=== PATIENT | female | born 1990 | race Caucasian/White ===

== ENCOUNTER → 2023-04-04 10:19 | Outpatient (CLI) | payer OTHER, SELFPAY ==
[2023-04-04 11:02] LABS: Specimen Label NATERA
[2023-04-04 12:16] LABS: Add Manual Diff / Slide Review NO; Basophils Absolute Auto 0 /uL (0-100); Basophils Percent Auto 0.4 % (0-2); Eosinophils Absolute Auto 0 /uL (0-450); Eosinophils Percent Auto 0.5 % (2-4); Hematocrit 38.6 % (36-46); Hemoglobin 13.2 g/dL (12.0-16.0); Lymphocytes Absolute Auto 1900 /uL (1100-4500); Lymphocytes Percent Auto 19.3 % (25-40); Mean Corpuscular HGB Conc 34.3 % (30-36); Mean Corpuscular Hemoglobin 27.1 PG (26-34); Mean Corpuscular Volume 79.1 fL (80-100); Monocytes Absolute Auto 500 /uL (0-900); Monocytes Percent Auto 4.9 % (3-14); Neutrophils Absolute Auto 7300 /uL (1500-7000); Neutrophils Percent Auto 74.9 % (50-75); Platelet Count 297 X10^3/uL (150-400); Red Blood Cell Count 4.88 X10^6/uL (4.0-5.2); Red Cell Distribution Width 13.5 % (11.6-14.8); White Blood Cell Count 9.7 X10^3/uL (4.5-11.0)
[2023-04-04 12:22] LABS: Alanine Aminotransferase 21 IU/L (<35); Aspartate Aminotransferase 31 IU/L (14-36); BUN Creatinine Ratio 22.4 (6-22); Blood Urea Nitrogen 11 mg/dL (7-17); Estimated Glomerular Filt Rate > 60 mL/min (>60); Uric Acid 4.3 mg/dL (2.5-6.2)
[2023-04-04 12:57] LABS: Hepatitis B Surface Antigen NEGATIVE s/c (NEGATIVE)
[2023-04-04 13:22] LABS: HIV 1 & 2 Ab/Ag 4th Gen Combo NEGATIVE (NEGATIVE); Hep C Virus Ab w/Reflex Quant NEGATIVE s/c (NEGATIVE)
[2023-04-05 06:27] LABS: RPR Screen Non Reactive (Non Reactive)
[2023-04-05 12:25] LABS: Varicella IgG Antibody 1381 index (Immune >165)
== END ==
PROVIDERS: PCP Physician Assistant Medical; Referring Provider Obstetrics & Gynecology; Visit Provider Obstetrics & Gynecology
DX: Z34.80 Encounter for supervision of other normal pregnancy, unspecified trimester (principal); O09.521 Supervision of elderly multigravida, first trimester; O09.299 Supervision of pregnancy with other poor reproductive or obstetric history, unspecified trimester
CPT/HCPCS: 36415; 80055; 82565; 84450; 84460; 84520; 84550; 86787; 86803; 86850; 86900; 86901; 87086; 87389

== ENCOUNTER → 2023-05-23 11:25 | Outpatient (CLI) | payer OTHER, SELFPAY | PROVIDERS: PCP Physician Assistant Medical; Visit Provider Obstetrics & Gynecology | DX: R82.998 Other abnormal findings in urine (principal) | CPT/HCPCS: 87086 ==

== ENCOUNTER → 2023-05-23 12:00 | Outpatient (CLI) | payer OTHER, SELFPAY ==
[2023-05-25 20:36] LABS: AFP Value 28.5 ng/mL (.); Gest Age on Col Date 18.6 weeks (.); Insulin Dep Diabetes No (.); OSBR Risk 1IN 10000 (.); Results Report (.); Test Results *Screen Negative* (.)
== END ==
PROVIDERS: PCP Physician Assistant Medical; Referring Provider Obstetrics & Gynecology; Visit Provider Obstetrics & Gynecology
DX: Z34.82 Encounter for supervision of other normal pregnancy, second trimester (principal); Z3A.17 17 weeks gestation of pregnancy
CPT/HCPCS: 36415; 82105; 87086

== ENCOUNTER → 2023-07-19 11:00 | Outpatient (CLI) | payer OTHER, SELFPAY ==
[2023-07-19 13:39] LABS: Hematocrit 35.3 % (36-46)
[2023-07-19 13:58] LABS: GTT (PREG) 1 Hour PP 50gm Dose 128 mg/dL (76-139)
== END ==
PROVIDERS: PCP Physician Assistant Medical; Referring Provider Obstetrics & Gynecology; Visit Provider Obstetrics & Gynecology
DX: Z34.82 Encounter for supervision of other normal pregnancy, second trimester (principal); Z3A.25 25 weeks gestation of pregnancy
CPT/HCPCS: 36415; 82950; 85014; 85018

== ENCOUNTER → 2023-08-16 13:38 | Outpatient (CLI) | payer OTHER, SELFPAY ==
[2023-08-17 14:20] LABS: Candida species Negative (Negative); Gardnerella vaginalis Negative (Negative); Trichomoas vaginalis Negative (Negative)
== END ==
PROVIDERS: PCP Physician Assistant Medical; Visit Provider Specialist
DX: N89.8 Other specified noninflammatory disorders of vagina (principal)
CPT/HCPCS: 87480; 87510; 87660

== ENCOUNTER 2023-08-31 11:02 | Outpatient (CLI) | payer OTHER, SELFPAY | END 2023-08-31 11:39 | disposition home or self-care (01) | LOC: LABOR 11:23 → OB 09-18 08:41 | PROVIDERS: PCP Physician Assistant Medical; Referring Provider Obstetrics & Gynecology; Visit Provider Obstetrics & Gynecology | DX: O13.3 Gestational [pregnancy-induced] hypertension without significant proteinuria, third trimester (principal); Z3A.32 32 weeks gestation of pregnancy | CPT/HCPCS: 59025; G0378; G0379 ==

== ENCOUNTER 2023-09-15 15:24 | Outpatient (CLI) | payer OTHER, SELFPAY ==
--- NOTE | 2023-09-15 17:06 | PM.OBTRLD ---
Visit Information Visit Information Date of evaluation: 09/15/23 Primary OB Provider: Lizeth Fisher Reason for Evaluation: Yes non-stress test non-stress test reason: hypertension/pre-eclampsia PFSH Medical History (Updated 05/23/23 @ 12:04 by Travis Ramos MD) Acne Migraine with aura Normal esophagogastroduodenoscopy (EGD) History of loop electrosurgical excision procedure (LEEP) of cervix affecting in third trimester (03/14/17) Encounter for induction of labor Spontaneous vaginal delivery Stenosis, cervix Preeclampsia Surgical History (Updated 04/28/23 @ 06:58 by Lizeth Fisher MD) [place] teeth extracted H/O LEEP Family History (Updated 03/08/23 @ 15:26 by Carly Post RN) Mother Hypertension Depression Adopted hemorrhage Father ADHD Grandmother Cancer Grandfather Heart disease Social History marital status: number of children: 1 household members: spouse, family (in-laws) and children lives independently: Yes caregiver/support person: Yes housing: house pets and animals: Yes (1 cat, 1 dog; managing litter box) education level: high school 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) current occupational exposures/hazards: No special kristal needs: No travel history: over 6 months ago seatbelt use: always water heater temp set < 120 deg: Yes working smoke detector in home: Yes fire extinguisher in home: Yes carbon monox detector in home: Yes firearms in home: No do you feel safe at home: Yes Smoking Status: Former smoker (Quit age 24, started vaping ~[age] y.o.) Tobacco: How many years used: 10 (Off and on smoking/vaping for total of 8-10 years) second hand exposure: No alcohol intake: former (6-10 glasses wine/week when not ) substance use type: does not use during the past year weight has: remained stable well-balanced diet: daily or most days daily servings fruits/ve or more times/day caffeine: Yes (aware of 200mg limit) Type(s) of exercise: other (active job) Evaluation Evaluation Baseline heart rate: 120 Variability: Moderate (11-25) monitor accelerations: Present Monitor Decelerations: Absent Category of Tracing: Reactive Diagnosis, Plan/Disposition Plan/Disposition Plan: A: 33+5 with HTN, h/o PEC Reactive NST P: F/U 2 wks
== END 2023-09-15 16:27 | disposition home or self-care (01) ==
LOC: LABOR 15:45 → OB 09-18 07:51
PROVIDERS: PCP Physician Assistant; Referring Provider Obstetrics & Gynecology; Visit Provider Obstetrics & Gynecology
DX: O16.3 Unspecified maternal hypertension, third trimester (principal); Z3A.33 33 weeks gestation of pregnancy
CPT/HCPCS: 59025; G0378; G0379

== ENCOUNTER → 2023-09-28 09:58 | Outpatient (CLI) | payer OTHER, SELFPAY ==
[2023-09-29 13:27] LABS: Strep Grp B PCR POS for Grp B Strep
== END ==
PROVIDERS: PCP Physician Assistant; Visit Provider Obstetrics & Gynecology
DX: Z34.83 Encounter for supervision of other normal pregnancy, third trimester (principal); Z3A.36 36 weeks gestation of pregnancy
CPT/HCPCS: 87653

== ENCOUNTER 2023-09-28 10:27 | Outpatient (CLI) | payer OTHER, SELFPAY | END 2023-09-28 10:59 | disposition home or self-care (01) | LOC: OB 10-02 08:13 | PROVIDERS: PCP Physician Assistant; Referring Provider Obstetrics & Gynecology; Visit Provider Obstetrics & Gynecology | DX: O13.3 Gestational [pregnancy-induced] hypertension without significant proteinuria, third trimester (principal); Z3A.36 36 weeks gestation of pregnancy | CPT/HCPCS: 59025; 87653; G0378; G0379 ==

== ENCOUNTER 2023-10-04 19:32 | Inpatient (IN) | payer OTHER, SELFPAY ==
[2023-10-04 19:37] VITALS: BP 140/85
[2023-10-04 21:03] VITALS: BP 140/85
[2023-10-04] MEDS: LABETALOL 100 MG TABLET 200 MG PO (21:03)
[2023-10-04] MEDS: miSOPROStoL 25 MCG TABLET 50 MCG PO (21:03)
[2023-10-04] MEDS: ZOLPIDEM 5 MG TABLET 10 MG PO (21:03)
[2023-10-04 21:05] LABS: Add Manual Diff / Slide Review NO; Basophils Absolute Auto 0 /uL (0-100); Basophils Percent Auto 0.2 % (0-2); Eosinophils Absolute Auto 100 /uL (0-450); Eosinophils Percent Auto 0.6 % (2-4); Hematocrit 33.9 % (36-46); Hemoglobin 11.4 g/dL (12.0-16.0); Lymphocytes Absolute Auto 1900 /uL (1100-4500); Lymphocytes Percent Auto 19.4 % (25-40); Mean Corpuscular HGB Conc 33.7 % (30-36); Mean Corpuscular Hemoglobin 27.1 PG (26-34); Mean Corpuscular Volume 80.4 fL (80-100); Monocytes Absolute Auto 700 /uL (0-900); Monocytes Percent Auto 6.7 % (3-14); Neutrophils Absolute Auto 7100 /uL (1500-7000); Neutrophils Percent Auto 73.1 % (50-75); Platelet Count 232 X10^3/uL (150-400); Red Blood Cell Count 4.22 X10^6/uL (4.0-5.2); Red Cell Distribution Width 14.9 % (11.6-14.8); White Blood Cell Count 9.7 X10^3/uL (4.5-11.0)
[2023-10-04 21:42] LABS: Aspartate Aminotransferase 23 IU/L (14-36); BUN Creatinine Ratio 16.3 (6-22); Blood Urea Nitrogen 7 mg/dL (7-17); Estimated Glomerular Filt Rate > 60 mL/min (>60); Uric Acid 4.9 mg/dL (2.5-6.2)
[2023-10-05] MEDS: miSOPROStoL 25 MCG TABLET 50 MCG PO ×2 (01:22→05:45)
--- NOTE | 2023-10-05 08:06 | PM.OBHP.IH.1 ---
OB HPI Date/Time Date of admission: 10/04/23 Date Patient Seen: 10/05/23 Time Patient Seen: 08:06 History of Present Condition Chief complaint: labor NELLIE Calculator Estimated Delivery Date Method Current WG Current Estimate 10/26/23 LMP (Certain) 37w 0d Estimated Gestational Age (weeks): 37 : 2 Para: 1 care: good care, initiated at week # (9), number of visits (10) and pounds weight gain (45) Dating criteria OB: LMP confirmed by 1st trimester US Ultrasounds: normal 1st trimester US and normal mid trimester US Obstetrical complications: other (chronic hypertension) Medical complications OB: cardiovascular (Chronic hypertension) Indications Indication for induction OB: gestational HTN/pre-eclampsia Preadmission Labs Last OB Lab Results: Blood Type B Positive 10/04/23 20:30 Antibody Screen Negative 10/04/23 20:30 Hematocrit 33.9 % (36-46) L 10/04/23 20:30 Hemoglobin 11.4 g/dL (12.0-16.0) L 10/04/23 20:30 Hepatitis B Surface Antigen Negative s/c (NEGATIVE) 04/04/23 10:42 Hepatitis C Antibody Negative s/c (NEGATIVE) 04/04/23 10:42 Rubella Antibody 170.0 IU/mL (>15) 04/04/23 10:42 Varicella-Zoster IgG Antibody 1381 index (Immune >165) 04/04/23 10:42 Glucose 1 Hour 128 mg/dL (76-139) 07/19/23 12:19 Fasting Glucose 68 mG/dL (70-105) L 02/21/17 10:10 Glucose 3 Hour 70 mg/dL (70-145) 02/21/17 13:17 Group B Streptococcus (PCR) Pos for grp b strep H 09/28/23 09:58 -: Chlamydia screen: negative, Gonorrhea screen: negative and Urine: negative -: PAP smear: Normal Genetic Screens: Cell-free DNA: Normal (normal female) and Alpha-fetoprotein: Normal External Labs -: Urine: negative Prior (ies) Past Pregnancies Del. Date GA/Weeks Labor Lgth Wt Sex Route Outcome Anesthesia Place Delv Breastfeed Preg Comp Name 05/10/17 38 6 lb Female vaginal live - epidural IH 5-6 months other pre-eclampsia [place] Delivery Date: 05/10/17 Last Updated by: Carly Post RN Low labor r/t cervical stenosis from LEEP Evaluation Evaluation Baseline heart rate: 135 Variability: Moderate (11-25) monitor accelerations: Present Monitor Decelerations: Absent Contraction Frequency (minutes): 4 Uterine Contraction Intensity: Mild Status: Category l PFS Medical History (Updated 09/16/23 @ 19:50 by Lizeth Fisher MD) Acne Migraine with aura Normal esophagogastroduodenoscopy (EGD) History of loop electrosurgical excision procedure (LEEP) of cervix affecting in third trimester (03/14/17) Encounter for induction of labor Spontaneous vaginal delivery Stenosis, cervix Preeclampsia Surgical History (Updated 04/28/23 @ 06:58 by Lizeth Fisher MD) [place] teeth extracted H/O LEEP Family History (Updated 03/08/23 @ 15:26 by Carly Post RN) Mother Hypertension Depression Adopted hemorrhage Father ADHD Grandmother Cancer Grandfather Heart disease Social History marital status: number of children: 1 household members: spouse, family (in-laws) and children lives independently: Yes caregiver/support person: Yes housing: house pets and animals: Yes (1 cat, 1 dog; managing litter box) education level: high school 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 occupational exposures/hazards: No special kristal needs: No travel history: over 6 months ago seatbelt use: always water heater temp set < 120 deg: Yes working smoke detector in home: Yes fire extinguisher in home: Yes carbon monox detector in home: Yes firearms in home: No do you feel safe at home: Yes Smoking Status: Former smoker Tobacco: How many years used: 10 (Off and on smoking/vaping for total of 8-10 years) second hand exposure: No alcohol intake: former (6-10 glasses wine/week when not ) substance use type: does not use during the past year weight has: remained stable well-balanced diet: daily or most days daily servings fruits/ve or more times/day caffeine: Yes (aware of 200mg limit) Type(s) of exercise: other (active job) Meds Home Medications and Allergies Home Medications Medication Instructions Recorded Confirmed Type vitamin-ferrous sulfate tab PO 03/08/23 09/28/23 History 27 mg iron-folic acid 0.8 mg tablet ondansetron 4 mg disintegrating 4 mg PO Q6H PRN nausea and 03/14/23 10/05/23 Rx tablet vomiting #20 tabs omeprazole 20 mg capsule,delayed 20 mg PO DAILY #60 caps 09/29/23 10/05/23 Rx release labetalol 100 mg tablet 200 mg (2 x 100 mg) PO BID #60 tabs 10/03/23 10/05/23 Rx Allergies Allergy/AdvReac Type Severity Reaction Status Date / Time No Known Drug Allergies Allergy Unknown Unverified 09/28/23 09:48 [NO KNOWN DRUG ALLERGIES] OB Exam Narrative Exam Narrative: Generally: Patient is sitting up in bed, comfortable with contractions, no acute distress Lungs: Clear to auscultation bilaterally Cardiovascular: Regular rate and rhythm Fundal height: 38 cm Estimated weight: 6-1/2 lb Extremities: No edema, 1+ DTRs Objective Labs 10/04/23 20:30 10/04/23 21:15 Labs: Laboratory Results - last 24 hr 10/04/23 10/04/23 20:30 21:15 WBC 9.7 RBC 4.22 Hgb 11.4 L Hct 33.9 L MCV 80.4 MCH 27.1 MCHC 33.7 RDW 14.9 H Plt Count 232 Neut % (Auto) 73.1 Lymph % (Auto) 19.4 L Nelson % (Auto) 6.7 Eos % (Auto) 0.6 L Baso % (Auto) 0.2 Neut # (Auto) 7100 H Lymph # (Auto) 1900 Nelson # (Auto) 700 Eos # (Auto) 100 Baso # (Auto) 0 BUN 7 Creatinine 0.43 L Estimated GFR > 60 BUN/Creatinine Ratio 16.3 Uric Acid 4.9 AST 23 Blood Type B Positive Antibody Screen Negative Assessment and Plan Assessment and Plan Assessment and Plan narrative: Assessment: 33-year-old 2 para 1 with chronic hypertension, status post 3 doses of oral misoprostol Plan: Check cervix at 9:45 a.m. and decide on more cervical ripening versus Pitocin Group B strep prophylaxis once having regular contractions Time Spent with Patient Total time spent with greater than 50% in coordination of care (as documented) at patient's floor/unit and/or counseling patient:: 15-24 minutes
[2023-10-05 08:56] VITALS: BP 162/70; PULSE 100
[2023-10-05] MEDS: LABETALOL 100 MG TABLET 200 MG PO (08:56)
[2023-10-05] MEDS: LACTATED RINGERS 1,000 ML 100 ML IV (10:17)
[2023-10-05] MEDS: OXYTOCIN PREMIX 30 UNIT/500 ML PLAST..BAG IV (10:21)
[2023-10-05] MEDS: AMPICILLIN 2,000 MG in SODIUM CHLORIDE 0.9% 100 ML 200 MG IV (12:19)
--- NOTE | 2023-10-05 13:29 | PM.OBPNLAB ---
Date/Time Date Patient Seen: 10/05/23 Time Patient Seen: 12:40 Pain Control Pain control: tolerating well Pelvic Exam Dilation (cm): 1 Effacement (%): 80 station: -1 (cervic behind pubic bone) Amniotic membrane status: Intact Contractions Contractions on admission: none Monitor mode: External Pitocin rate (mU/min): 8 Contraction frequency (min): 3 Contraction duration (min): 1 Contraction pattern: Regular Contraction intensity: Moderate Status status: Category l Heart Rate Baseline: 135 Monitor Accelerations: Present Monitor Decelerations: Absent Monitor Variability: Moderate Assessment and Plan Assessment: induction ongoing Comments: Begin Pitocin augmentation GBS prophylaxis Expectant management to
--- NOTE | 2023-10-05 15:22 | P.PCN_ITS ---
[facility] <Domingo Carter, DO - Last Filed: 10/06/23 07:02> Pre-procedure Attending OB provider: Lizeth Fisher PMH/ROS narrative: term IOL for chronic HTN, controlled on PO labetalol. No obstetric complications. ASA Class: II Labs: Hct 33.9 % (36-46) L 10/04/23 20:30 Plt Count 232 X10^3/uL (150-400) 10/04/23 20:30 Medications: Current Medications Generic Name Dose Route Start Last Admin Trade Name Freq PRN Reason Stop Dose Admin Calcium Carbonate 1,000 mg 10/04/23 20:14 Calcium Carbonate 500 Mg Tab PO Q4HR PRN Dyspepsia Carboprost Tromethamine 250 mcg 10/04/23 20:14 Carboprost 250 Mcg/Ml Ampul IM Q90M PRN Bleeding Fentanyl 50 mcg 10/04/23 20:14 Fentanyl 100 Mcg/2 Ml Inj IV Q1H PRN Pain, Moderate (4-6) Oxytocin/Lactated Ringer's 30 unit in 500 mls @ 2 mls/hr 10/04/23 20:15 10/05/23 10:21 Oxytocin Premix IV 2 milliunit/min TITRATE CHAN 2 mls/hr Administration Protocol 2 MILLIUNIT/MIN Lactated Ringer's 1,000 mls @ 100 mls/hr 10/04/23 20:15 10/05/23 10:17 Lactated Ringers IV 100 mls/hr CONT CHAN Administration Oxytocin/Lactated Ringer's 30 unit in 500 mls @ 200 mls/hr 10/04/23 20:14 Oxytocin Premix IV CONT PRN Bleeding Protocol Tranexamic Acid 1,000 mg/ 100 mls @ 200 mls/hr 10/04/23 20:14 Sodium Chloride IV NOW PRN Bleeding Ampicillin Sodium 1,000 mg/ 100 mls @ 200 mls/hr 10/05/23 16:15 Sodium Chloride IV Q4H CHAN Labetalol HCl 200 mg 10/04/23 21:00 10/05/23 08:56 Labetalol 100 Mg Tablet PO 200 mg BID CHAN Administration Lidocaine HCl 20 ml 10/04/23 20:14 Lidocaine 1% 20 Ml INJ INTRA-OP PRN Post Delivery Misoprostol 50 mcg 10/04/23 20:15 06/06/24 05:45 Misoprostol 25 Mcg Tablet PO 50 mcg Q4H CHAN Administration Misoprostol 800 mcg 10/04/23 20:14 Misoprostol 200 Mcg Tablet VT NOW PRN Bleeding Misoprostol 400 mcg 10/04/23 20:14 Misoprostol 200 Mcg Tablet SL NOW PRN Bleeding Naloxone HCl 0.2 mg 10/04/23 20:14 Naloxone 0.4 Mg/Ml Vial IV Q2MIN PRN Opiate Reversal Ondansetron HCl 4 mg 10/04/23 20:14 Ondansetron 4 Mg/2 Ml Inj IV Q4HR PRN Nausea And Vomiting Oxytocin 10 unit 10/04/23 20:14 Oxytocin 10 Unit/Ml Vial IM NOW PRN Bleeding Sodium Chloride 10 ml 10/04/23 21:00 Sodium Chloride 0.9% Flush IV BID CHAN Sodium Chloride 10 ml 10/04/23 20:14 Sodium Chloride 0.9% Flush IV PRN PRN Flush Zolpidem Tartrate 10 mg 10/04/23 20:46 10/04/23 21:03 Zolpidem 5 Mg Tablet PO 10 mg BEDTIME PRN Administration Sleep Allergies: Allergies Allergy/AdvReac Type Severity Reaction Status Date / Time No Known Drug Allergies Allergy Unknown Unverified 09/28/23 09:48 [NO KNOWN DRUG ALLERGIES] Procedure Insertion date: 10/05/23 Insertion time: 15:37 Prep/Local: betadine x3 and 1% lidocaine Interspace: L3-4 Patient position: sitting Needle: 18 gauge Rota dos Concursostead (CSE: 27g Pencan through Hustead, clear CSF, 1mL 0.25% bupiv MPF) Loss of resistance with: saline ANDRAE at (cm): 6 Catheter placed at SKIN (cm): 11 Catheter in SPACE (cm): 5 Insertion: No CSF, No Blood, Yes Paresthesia with insertion, No Paresthesia with injection and No Test dose reaction Initial Medications TEST DOSE time: 15:39 TEST DOSE: 1.5% lidocaine with epinephrine 1:200k (mL): 3 BOLUS DOSE time: 15:47 BOLUS DOSE (mL): 4 BOLUS DOSE med: other (infusate) Infusion INFUSION: 0.125% bupivacaine and with fentanyl 2 mcg/mL Initial rate (mL/hr): 10 Subsequent interventions: PCEA10+4 Post-procedure Anesthesia date START: 10/05/23 Anesthesia time START: 15:22 Anesthesia date END: 10/05/23 Anesthesia time END: 20:24 Post-procedure Anesthesia Assessment: Yes CV function: HR/BP stable, Yes Resp function: RR/sat/airway adequate, Yes Post-op hydration adequate, Yes Pain control adequate, Yes Nausea & vomiting absent, Yes Temperature > 36 C, Yes Mental status appropriate and No Anesthesia complications <Saji Mccarty MD - Last Filed: 10/06/23 08:45> Infusion Subsequent interventions: PCEA10+4 [id number] Called to see pt regarding increasing uncomfortable pressure. She points to the perineum and nurse notes she is 9cm dilated. Bolus of 0.25% bupivacaine given via epidural. Pump settings left at PCEA10+4.
[2023-10-05] MEDS: AMPICILLIN 1,000 MG in SODIUM CHLORIDE 0.9% 100 ML 200 MG IV (16:56)
--- NOTE | 2023-10-05 17:28 | PM.OBPNLAB ---
Date/Time Date Patient Seen: 10/05/23 Time Patient Seen: 16:35 Pain Control Pain control: epidural Pelvic Exam Dilation (cm): 5 Effacement (%): 90 station: 0 (cervic behind pubic bone) Amniotic membrane status: Intact Contractions Contractions on admission: none Monitor mode: External Pitocin rate (mU/min): 16 Contraction frequency (min): 3 Contraction duration (min): 1 Contraction pattern: Regular Contraction intensity: Strong/Firm Status status: Category l Heart Rate Baseline: 135 Monitor Accelerations: Present Monitor Decelerations: Absent Monitor Variability: Moderate Assessment and Plan Assessment: active labor and induction ongoing Comments: AROM with copious clear amniotic fluid High Gupta's and then side to side position changes Expectant management to
--- NOTE | 2023-10-05 21:15 | PM.OBPRVD ---
Events: Induced HTN and Labor Induction Labor & Delivery Delivery date: 10/05/23 Intrapartal Events: Deceleration (with pushing) Cervical ripening method: per misoprostal protocol Induction method: per pitocin protocol Delivery augmentation: rupture of membranes Delivery monitor: external FHT and external uterine Route of delivery: vacuum extraction Indication for instrumentation: nonreassuring FHR tracing (deep variable decels with pushing) Episiotomy description: None L&D Laceration Description: Perineal - 2nd Degree (right vulvar skin tag removed with a scalpel), Vaginal - 2nd Degree and Labial (superficial) Delivery repair: vicryl and chromic Quantitative Blood Loss: 845 Anesthesia Type: Epidural Complications: None Narrative: Patient complete and pushed for 11 minutes. At 8:14 p.m., a live female delivered spontaneously in the PAL presentation, over an intact perineum. No nuchal cord. The remainder of the body delivered without difficulty and was placed on mom's abdomen. A true knot in the cord was seen approximately longterm down the length of the cord. The cord was double clamped and cut after it stopped pulsing. Cord bloods were obtained directly from the cord. Pitocin was given in the IV fluids. The placenta delivered intact with a three-vessel cord at 8:31 p.m.. The fundus was massaged to firm. A second-degree perineal/vaginal laceration was repaired in the usual fashion with 2-0 Vicryl and 2-0 chromic. A right superficial labial laceration was repaired with 4-0 chromic in a running fashion. A right vulvar skin tag measuring 0.8 x 0.6 cm was excised with a # 15 blade. A [id number] suture with 4-0 chromic was placed for hemostasis. Hemostasis was achieved in all of the repairs. Epidural analgesia. . Lap count correct x5. 4 x 4 count correct times 10. Two straight needles, 3 curved needles. One scalpel. Mom and stable to recovery. BW 7#2oz. Apgars 4 at 1 minute, 6 at 5 minutes, and 8 at 10 minutes. [place] Baby 1: Infant gender: Female Presentation: vertex Position: Left Occiput Anterior Placenta delivery description: Spontaneous Cord Vessel Description: 3 Vessels, True Knot (x1) and Clamped/Cut (after cord stopped pulsing) score (1 min): 4 score (5 min): 6 score (10 min): 8 weight: 7 lb 3 oz Plan for aftercare: Routine care
[2023-10-06] MEDS: IBUPROFEN 600 MG TABLET PO ×4 (00:36→18:16)
[2023-10-06] MEDS: DERMOPLAST SPRAY 20% 60 ML 1 SPRAY TOP (00:36)
[2023-10-06] MEDS: ACETAMINOPHEN 325 MG TABLET 650 MG PO ×4 (00:36→18:16)
[2023-10-06 06:49] LABS: Hematocrit 32.5 % (36-46)
[2023-10-06] MEDS: DOCUSATE 100 MG CAPSULE PO (08:51)
[2023-10-06] MEDS: LABETALOL 100 MG TABLET 200 MG PO ×2 (08:51→19:51)
[2023-10-06] MEDS: PRENATAL VIT,CALC/IRON/FOLIC 1 TABLET 1 TAB PO (08:51)
[2023-10-06] MEDS: OXYCODONE IR 5 MG TABLET PO ×3 (08:51→18:16)
[2023-10-06] MEDS: LANOLIN OINT 7 GM 1 APPLIC TOP (09:02)
--- NOTE | 2023-10-06 18:30 | P.DS_ITS ---
Discharge Providers Provider Date of admission: 10/04/23 19:32 Discharge Date: 10/06/23 Primary care physician: Salma Manuel PA-C Consults: 10/04/23 20:14 Consult to Anesthesiology Urgent Comment: Consulting Provider: Anesthesiologist Reason for consultation: Epidural Has provider been notified: No 10/06/23 21:10 Consult to Metal Numerical Control Programmer Routine Comment: Discharge provider: Lizeth Fisher MD Summary Hospital Course Date Patient Seen: 10/06/23 Time Patient Seen: 18:31 Diagnoses: Thirty-seven weeks' gestation Chronic hypertension Cervical ripening with misoprostol Pitocin induction of labor Vacuum assisted vaginal delivery Second-degree vaginal/perineal laceration True knot in the cord Hospital Course: Patient is a 33-year-old 2 para 2 who presented on October 04, 2023 for cervical ripening due to an unfavorable cervix. She received 3 doses of misoprostol. On the morning of October 05, 2023 she was started on Pitocin. She received an epidural for pain management. Artificial rupture membranes was performed with copious clear amniotic fluid. She progressed to complete dilation and had a vacuum assisted vaginal delivery without complication. The vacuum was applied due to deep variable decelerations with pushing. Her course was unremarkable and she is discharged home on day # 1. is going well. Bleeding is tapering. Blood pressure is stable. Peripartum Data Delivery Method: Assisted Delivery (Vacuum assisted vaginal delivery) Laceration Description: Perineal - 2nd Degree and Vaginal - 2nd Degree Episiotomy description: None Procedures: Misoprostol cervical ripening Pitocin induction of labor Epidural analgesia Artificial rupture of membranes Vacuum assisted vaginal delivery Second-degree vaginal/perineal laceration repair complications: none 1: Gender: Female Status at Discharge Cognitive/behavioral status at discharge: oriented Functional status at discharge: independent ambulation Overall status at discharge: patient is progressing back to baseline Time Spent with Patient Time attestation: Total time spent providing and/or coordinating discharge services: Time spent: Less than 30 minutes Objective Labs 10/06/23 06:40 10/04/23 21:15 Labs: Laboratory Results - last 24 hr 10/06/23 06:40 Hgb 11.0 L Hct 32.5 L Exam Narrative Exam Narrative: Generally: Patient is sitting up in bed, no acute distress Fundus: Firm at U -1 Extremities: Trace edema, negative Homans Discharge Plan Discharge Plan Patient Disposition: Home Provider Discharge Comment: Call with fever, chills, or bleeding vaginally more than a pad in an hour Ibuprofen 600 mg every 6 hours as needed Tylenol 650 mg every 6 hours as needed Discharge orders & Medications Prescriptions: New oxycodone 5 mg tablet 5 mg PO Q4H PRN (Reason: pain) Qty: 14 0RF ibuprofen 600 mg tablet 600 mg PO QID PRN (Reason: cramping or pain) Qty: 30 0RF Continued labetalol 100 mg tablet 200 mg PO BID Qty: 60 3RF vit-ferrous sulfat-FA 27 mg iron- 0.8 mg tablet PO Discontinued ondansetron 4 mg tablet,disintegrating 4 mg PO Q6H PRN (Reason: nausea and vomiting) Qty: 20 2RF omeprazole 20 mg capsule,delayed release(DR/EC) 20 mg PO DAILY Qty: 60 1RF Follow up/Referrals: Lizeth Fisher MD [Physician] - (Post [address] Slaughter on 11/15/2023 @ 1100am) Diet/Activity/Treatments Diet: Regular Activity: Nothing in the vagina for 6 weeks Skin/Wound/Dressing Care Report to your healthcare provider any signs of infection, such as:: chills, fever, increased pain and unusual drainage Visit Report/Discharge Packet Instructions: DI for Labor and Delivery, Vaginal , DI for Prescription Opioid Use Stand Alone Forms: Patient Portal/API, Stroke Signs & Symptoms Discharge Data Primary Care Provider: Salma Manuel
== END 2023-10-06 22:00 | disposition home or self-care (01) | DRG 807 ==
PROVIDERS: Admitting Provider Obstetrics & Gynecology; PCP Physician Assistant; Referring Provider Obstetrics & Gynecology; Visit Provider Obstetrics & Gynecology
DX: O16.4 Unspecified maternal hypertension, complicating childbirth (principal); Z37.0 Single live birth; O99.824 Streptococcus B carrier state complicating childbirth; O76 Abnormality in fetal heart rate and rhythm complicating labor and delivery; Z67.20 Type B blood, Rh positive; Z3A.37 37 weeks gestation of pregnancy; O70.1 Second degree perineal laceration during delivery
CPT/HCPCS: 36415; 59050; 59200; 59400; 84450; 84550; 85014; 85018; 85025; 86850; 86900; 86901; G0379; J0290; J2590

== ENCOUNTER → 2024-09-18 13:46 | Outpatient (CLI) | payer OTHER, SELFPAY ==
[2024-09-18 16:40] LABS: Urine N gonorrhoeae NOT DETECTED
[2024-09-18 16:51] LABS: Urine Chlamydia NOT DETECTED
[2024-09-20 13:10] LABS: Candida species Negative (Negative); Gardnerella vaginalis Negative (Negative); Trichomoas vaginalis Negative (Negative)
== END ==
PROVIDERS: PCP Physician Assistant; Visit Provider Obstetrics & Gynecology
DX: Z11.3 Encounter for screening for infections with a predominantly sexual mode of transmission (principal); N89.8 Other specified noninflammatory disorders of vagina; Z3A.09 9 weeks gestation of pregnancy
CPT/HCPCS: 81514; 87480; 87491; 87510; 87591; 87660; 87801

== ENCOUNTER → 2024-09-24 14:35 | Outpatient (CLI) | payer OTHER, SELFPAY ==
[2024-09-24 15:34] LABS: Add Manual Diff / Slide Review NO; Basophils Absolute Auto 0 /uL (0-100); Basophils Percent Auto 0.3 % (0-2); Eosinophils Absolute Auto 100 /uL (0-450); Eosinophils Percent Auto 0.7 % (2-4); Hematocrit 40.2 % (36-46); Hemoglobin 13.7 g/dL (12.0-16.0); Lymphocytes Absolute Auto 1800 /uL (1100-4500); Lymphocytes Percent Auto 17.9 % (25-40); Mean Corpuscular HGB Conc 34.1 % (30-36); Mean Corpuscular Hemoglobin 27.8 PG (26-34); Mean Corpuscular Volume 81.6 fL (80-100); Monocytes Absolute Auto 500 /uL (0-900); Monocytes Percent Auto 5.3 % (3-14); Neutrophils Absolute Auto 7600 /uL (1500-7000); Neutrophils Percent Auto 75.8 % (50-75); Platelet Count 316 X10^3/uL (150-400); Red Blood Cell Count 4.92 X10^6/uL (4.0-5.2); Red Cell Distribution Width 12.6 % (11.6-14.8); White Blood Cell Count 10.1 X10^3/uL (4.5-11.0)
[2024-09-24 15:39] LABS: Natera Collection Specimen Collected
[2024-09-24 16:02] LABS: Alanine Aminotransferase 26 IU/L (<35); Aspartate Aminotransferase 29 IU/L (14-36); Blood Urea Nitrogen 12 mg/dL (7-17); Estimated Glomerular Filt Rate > 60 mL/min (>60); Uric Acid 4.5 mg/dL (2.5-6.2)
[2024-09-24 16:35] LABS: Hepatitis B Surface Antigen NEGATIVE s/c (NEGATIVE); Rubella Antibody IgG 38.8 IU/mL (>15)
[2024-09-24 16:52] LABS: HIV 1 & 2 Ab/Ag 4th Gen Combo NEGATIVE (NEGATIVE); Hep C Virus Ab w/Reflex Quant NEGATIVE s/c (NEGATIVE)
[2024-09-26 04:08] LABS: Varicella IgG Antibody Reactive (Non Reactive)
[2024-09-26 05:10] LABS: RPR Screen Non Reactive (Non Reactive)
== END ==
PROVIDERS: PCP Physician Assistant; Referring Provider Obstetrics & Gynecology; Visit Provider Obstetrics & Gynecology
DX: O09.899 Supervision of other high risk pregnancies, unspecified trimester (principal); Z3A.10 10 weeks gestation of pregnancy
CPT/HCPCS: 36415; 80055; 82565; 84450; 84460; 84520; 84550; 86787; 86803; 86850; 86900; 86901; 87086; 87147; 87389

== ENCOUNTER → 2024-11-26 11:51 | Outpatient (CLI) | payer OTHER, SELFPAY ==
[2024-11-28 19:38] LABS: Gest Age on Col Date 19.0 weeks (.); OSBR Risk 1IN 10000 (.)
== END ==
PROVIDERS: PCP Physician Assistant; Referring Provider Obstetrics & Gynecology; Visit Provider Obstetrics & Gynecology
DX: O09.899 Supervision of other high risk pregnancies, unspecified trimester (principal); Z3A.19 19 weeks gestation of pregnancy
CPT/HCPCS: 36415; 82105

== ENCOUNTER → 2025-01-16 09:31 | Outpatient (CLI) | payer OTHER, SELFPAY ==
--- NOTE | 2025-01-16 16:10 | DIAB.GDA ---
Initial Gestational Diabetes Assessment Name: Klarissa Lockwood Date: 01/16/25 Time: 700-3600 Dx: Gestational Diabetes Provider: Radha NELLIE: 04/22/25 Weeks: 26 Klarissa presents for initial GDM visit virtually using [facility] Portal. No previous h/o GDM. H/o preeclampsia/HTN in , treated currently with labetalol. States she has changed her diet dramatically. Focusing on very low CHO intake. Eating below recs for to help manage GDM. Needing info on sharps disposal. RD rec insulin therapy given BG results below. RD will message OB results. Reports some episodes in this that seem to be rebound lows. Describes times where she ate a larger CHO meal and then within about one hour feeling unwell, sweaty, feeling as though she is going to pass out. Then ate carbs and felt better. RD predicts she likely had some low BG after hyperglycemic episode. Diet recall: 830a: low CHO yogurt OR protein waffles with berries and low CHO yogurt sn: nothing or low CHO snack 1130a: protein with low CHO wrap and veggies sn: low CHO yogurt 6p: ground beef and sweet potatoes sn: low CHO cereal 50oz water diet soda Anthropometrics: Ht: 68 Wt: 223# 11/2024 Prepregnancy wt: 201# Physical Activity: not discussed today Self-Monitoring Blood Glucose: Started checking FBG and 2 hour pc. All FBG elevated. 1/6 elevated pc breakfast, 3/7 elevated pc lunch, 4/6 elevated pc dinner Date Pre Post Pre Post Pre Post HS 01/10 88 131 01/11 117 114 146 175 01/12 108 122 121 123 01/13 113 112 118 142 01/14 109 104 92 96 01/15 101 102 160 100 01/16 98 97 113 Diabetes Medications: none Pertinent Labs: Screen: 178mg/dl OGTT: 102, 207, 166 Nutrition Rx: Carbohydrates: Meal: 45-g lunch and dinner; 30g breakfast Snack: 15-30g Nutrition Diagnosis: Altered nutrition related lab value r/t GDM dx aeb recent OGTT Inadequate CHO intake r/t limiting intake to manage BG in aeb diet recall Intervention: This participant was very receptive. Provided appropriate educational handouts. Discussed the following topics: GDM pathophysiology and impact of hyperglycemia on mom and baby Risk for T2DM for mom and baby in the future Ways to reduce risk T2DM Plate Method, meal timing, carb counting, pairing macronutrients and spreading out CHO for better BG management Blood glucose goals (FBG: <95 and 1 hour <140 mg/dL or 2 hour <120mg/dl); importance of checking 4x per day (FBG and pc) Sharps disposal Hypoglycemia s/s and treatment Injection technique for insulin Reviewed CGM education, precautions, benefits and use Goals: Dispose of sharps safely Continue checking BG with meter until getting CGM sensor Download Sendmail 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 Will focus more on adequate nutrition once medication is implemented to improve BG. Sees OB next Monday. Melani Corrales RDN, AMADEO Certified Diabetes Care and Envelope Sealer T: [phone] F: [phone] [email or web address] Thank you for this referral
== END ==
LOC: DIET 09:31
PROVIDERS: PCP Physician Assistant; Referring Provider Obstetrics & Gynecology
DX: O24.419 Gestational diabetes mellitus in pregnancy, unspecified control (principal); Z3A.26 26 weeks gestation of pregnancy; Z87.59 Personal history of other complications of pregnancy, childbirth and the puerperium; Z71.3 Dietary counseling and surveillance
CPT/HCPCS: 97802

== ENCOUNTER → 2025-01-24 09:01 | Outpatient (CLI) | payer OTHER, SELFPAY ==
--- NOTE | 2025-01-24 09:03 | DIAB.GDFU ---
Follow-up Gestational Diabetes Assessment Name: Klarissa Lockwood Date: 01/24/25 Time: 9-930am Dx: Gestational Diabetes Provider: Radha NELLIE: 04/22/25 Weeks: 27 Klarissa presents for GDM visit virtually using [facility] Portal. No previous h/o GDM. H/o preeclampsia/HTN in , treated currently with labetalol. Reports postprandial BG have improved but FBG were still elevated, though seemingly those have come down as well in the last two days (on high side but in goal at 92mg/dl). OB rx'd NPH, however some issue with insurance coverage. RD messaged OB group to help troubleshoot insulin rx needs. Has been eating a protein cereal for HS snack. Added some sweet potatoes at breakfast. Only choosing low CHO bread and tortilla. Sometimes fruit. Still under eating CHO for to keep BG in goal, which has been more successfull this week. RD would rec a min of 30g CHO at meals (up to 45g at lunch and dinner if BG permits). States she would like to be able to add more CHO to breakfast. Diet recall: 830a: low CHO yogurt OR eggs with cheese on low CHO tortilla OR low CHO protein cereal sn: low CHO yogurt 1130a: protein with low CHO wrap and veggies sn: low CHO yogurt OR low CHO bars 6p: ground beef and sweet potatoes OR chicken burger with low CHO bun and veggies with fries sn: low CHO cereal 50oz water diet soda Anthropometrics: Ht: 68 Wt: 223# 11/2024 Prepregnancy wt: 201# Physical Activity: No program at this time. Biggest barrier r/t being gone frequently lately work trainings. She has been home solo parenting and working. Self-Monitoring Blood Glucose: Checking FBG and 2 hour pc. FBG elevated. 1/6 elevated pc breakfast, 1/6 elevated pc lunch, 1/6 elevated pc dinner. Today: Date Pre Post Pre Post Pre Post HS 01/18 109 117 133 123 01/19 96 126 116 110 01/20 101 108 89 101 01/21 96 105 108 87 01/22 96 111 108 95 01/23 92 97 92 103 01/24 92 Last Visit: Date Pre Post Pre Post Pre Post HS 01/10 88 131 01/11 117 114 146 175 01/12 108 122 121 123 01/13 113 112 118 142 01/14 109 104 92 96 01/15 101 102 160 100 01/16 98 97 113 Diabetes Medications: NPH---- not started yet Pertinent Labs: Screen: 178mg/dl OGTT: 102, 207, 166 Nutrition Rx: Carbohydrates: Meal: 30-45g lunch and dinner; 30g breakfast Snack: 15-30g Nutrition Diagnosis: Altered nutrition related lab value r/t GDM dx aeb recent OGTT Inadequate CHO intake r/t limiting intake to manage BG in aeb diet recall- continued Intervention: This participant was very receptive. Provided appropriate educational handouts. 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 Melani Corrales RDN, AMADEO Certified Diabetes Care and [facility] T: [phone] F: [phone] [email or web address] Thank you for this referral
== END ==
LOC: DIET 09:02
PROVIDERS: PCP Physician Assistant; Referring Provider Obstetrics & Gynecology
DX: O24.419 Gestational diabetes mellitus in pregnancy, unspecified control (principal); Z3A.27 27 weeks gestation of pregnancy; Z71.3 Dietary counseling and surveillance; Z87.59 Personal history of other complications of pregnancy, childbirth and the puerperium
CPT/HCPCS: 97803

== ENCOUNTER → 2025-01-30 09:07 | Outpatient (CLI) | payer OTHER, SELFPAY ==
--- NOTE | 2025-01-30 10:00 | DIAB.GDFU ---
Follow-up Gestational Diabetes Assessment Name: Klarissa Lockwood Date: 01/30/25 Time: 153-690 Dx: Gestational Diabetes Provider: Radha NELLIE: 04/22/25 Weeks: 28 Klarissa presents for GDM visit virtually using [facility] Portal. No previous h/o GDM. H/o preeclampsia/HTN in , treated currently with labetalol. Picked up CGM sensor but pharmacy only dispensing one at a time due to inventory shortage. First sensor failed and pharmacy replaced with another. Reports some symptoms of fatigue and lethargy with BG >140mg/dl postprandial. Picked up insulin but unable to start due to no rx for needles. Pt messaged OB group for rx. RD will follow-up on this today. she has questions about how to enjoy her birthday this weekend with GDM. Also has questions regarding storage of insulin. Reports trying to aim for 20-30g CHO at meals. Often choosing keto and very low CHo food options. Adding more fruit and potatoes since our last visit. Anthropometrics: Ht: 68 Wt: 222# 12/2024 223# 11/2024 Prepregnancy wt: 201# Physical Activity: No program at this time. Biggest barrier r/t being gone frequently lately work trainings. She has been home solo parenting and working. Self-Monitoring Blood Glucose: Checking FBG and 2 hour pc. 2/7 FBG elevated. 2/6 elevated pc breakfast, 1/6 elevated pc lunch, 2/6 elevated pc dinner. Today: Date Pre Post Pre Post Pre Post HS 01/24 92 93 101 130 01/25 112 107 127 130 01/26 91 121 117 106 01/27 94 123 78 88 01/28 94 103 90 106 01/29 88 119 88 96 01/30 99 Last Visit: Date Pre Post Pre Post Pre Post HS 01/18 109 117 133 123 01/19 96 126 116 110 01/20 101 108 89 101 01/21 96 105 108 87 01/22 96 111 108 95 01/23 92 97 92 103 01/24 92 Diabetes Medications: 13u NPH---- not started yet Pertinent Labs: Screen: 178mg/dl OGTT: 102, 207, 166 Intervention: This participant was very receptive. Provided appropriate educational handouts. 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 Melani Corrales RDN, AMADEO Certified Diabetes Care and Senior Dentist T: [phone] F: [phone] [email or web address] Thank you for this referral
== END ==
LOC: DIET 09:14
PROVIDERS: PCP Physician Assistant; Referring Provider Obstetrics & Gynecology
DX: O24.419 Gestational diabetes mellitus in pregnancy, unspecified control (principal); Z3A.28 28 weeks gestation of pregnancy; Z71.3 Dietary counseling and surveillance
CPT/HCPCS: G0108

== ENCOUNTER → 2025-02-13 09:32 | Outpatient (CLI) | payer OTHER, SELFPAY ==
--- NOTE | 2025-02-13 09:46 | DIAB.GDFU ---
Follow-up Gestational Diabetes Assessment Name: Klarissa Lockwood Date: 02/13/25 Time: [id number] Dx: Gestational Diabetes Provider: Radha NELLIE: 04/22/25 Weeks: 30 Klarissa presents for GDM visit virtually using [facility] Portal. No previous h/o GDM. H/o preeclampsia/HTN in , treated currently with labetalol. Today added 5u NPH AM to help reduced postprandial readings and allow for more balanced intake and variety. Added about 30-40g CHO to breakfast this morning with NPH and Bg of 150mg/dl postprandial. Plans for growth scan on Monday next week. Planning trip to [place] next week. Will bring NPH and supplies. States she feels relief with adding NPH BID to allow for more balanced eating. Feeling limited by BG and under consuming CHO for . Drinks most of water at night due to preparing electrolyte beverage to take with supplements before bed. Diet Recall: 830-9am: low CHO yogurt +/- granola and angolan muffin OR eggs with low CHO tortilla 10-11am: protein shake 12p: Low CHO tortilla quesadilla OR can of veggie soup OR chicken wrap 3p: protein shake and beef stick +/- string cheese OR atkins pb bar 530p: protein, 1-1.5c potatoes, veggie (broccoli) OR breaded chicken with mashed potato, veggie 830-845p: Keto ice cream bar 1c coffee sf soda 50oz water electrolyte beverage at night Just bought more low CHO frozen meals. Plans to add some CHO with it. Anthropometrics: Ht: 68 Wt: 224# 01/2025 222# 12/2024 223# 11/2024 Prepregnancy wt: 201# Physical Activity: No program at this time. 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 Work involves movement. Plans to walk more on trip to [place]. Self-Monitoring Blood Glucose: Checking FBG and 2 hour pc. 4/7 FBG elevated. 3/6 elevated pc breakfast, 5/6 elevated pc lunch, 3/6 elevated pc dinner. Today: Date Pre Post Pre Post Pre Post HS 02/07 104 129 122 150 02/08 105 126 148 166 02/09 95 101 121 144 02/10 97 95 101 115 02/11 84 99 154 103 10/15 93 107 158 119 02/13 96 150 Last Visit: Date Pre Post Pre Post Pre Post HS 01/24 92 93 101 130 01/25 112 107 127 130 01/26 91 121 117 106 01/27 94 123 78 88 01/28 94 103 90 106 01/29 88 119 88 96 01/30 99 Diabetes Medications: 13u NPH HS 5-8u NPH AM Pertinent Labs: Screen: 178mg/dl OGTT: 102, 207, 166 Nutrition Rx: Carbohydrates: Meal: 45-g lunch and dinner; 30g breakfast Snack: 15-30g Nutrition Diagnosis: Altered nutrition related lab value r/t GDM dx aeb recent OGTT Inadequate CHO intake r/t limiting intake to manage BG in aeb diet recall Intervention: This participant was very receptive. Provided appropriate educational handouts. 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 Melani Corrales RDN, AMADEO Certified Diabetes Care and Performance Test Consultant T: [phone] F: [phone] [email or web address] Thank you for this referral
== END ==
LOC: DIET 09:33
PROVIDERS: PCP Physician Assistant; Referring Provider Obstetrics & Gynecology
DX: O24.414 Gestational diabetes mellitus in pregnancy, insulin controlled (principal); Z3A.30 30 weeks gestation of pregnancy; Z71.3 Dietary counseling and surveillance
CPT/HCPCS: 97803

== ENCOUNTER → 2025-02-18 12:39 | Outpatient (CLI) | payer OTHER, SELFPAY ==
--- NOTE | 2025-02-18 12:40 | DI.US.S_ITS ---
PROCEDURE: US OB LIMITED INDICATIONS: GESTATIONAL DIABETES. GROWTH AND BIOPHYSICAL OUTSIDE/PRIOR DATING DATA: Last menstrual period (LMP): 07/16/2024 LMP-based estimated date of delivery (NELLIE): 04/22/2025. First dating scan (date and location): 09/18/2024. Estimated date of delivery (NELLIE) from first dating scan: 04/20/2025 Working NELLIE is 04/22/2025. TECHNIQUE: Real-time scanning was performed of the fetus, with image documentation and biometric measurements. Biophysical profile was also obtained. Endovaginal scanning: No COMPARISON: None. FINDINGS: General: A single living intrauterine gestation is present. Presentation: Vertex. Placenta: Placental position is posterior , without previa. Amniotic fluid index: 10.5 cm cm, normal range is 5-24 cm. Single deepest vertical pocket is 3 cm cm. heart rate: 130 beats per minute. Maternal cervical canal: 3.4 cm long. Normal lower limit is 2.5 cm. biometrics: Biparietal diameter: 32 weeks 5 days Head circumference: 32 weeks 5 days Abdominal circumference: 31 weeks 2 days Femur length: 30 weeks 4 days Clinically estimated gestational age: 31 weeks Composite gestational age from present scan: 31 weeks 6 days Estimated weight and percentile: 1749 g; 50th percentile Biophysical profile: Tone: 2 points. Movement: 2 points. Respiration: 2 points. Largest pocket of fluid: 2 points. IMPRESSION: 1. Single living IUP redemonstrated and interval growth is within normal limits. 2. Normal biophysical profile score of 8/8 possible points. We strive to produce accurate, complete, and clear reports of imaging services. To assist us in improving patient care, this report was composed using standard report templates and voice recognition software. Therefore, it may contain abnormal punctuation, insertions and/or omissions. Occasional wrong-word or sound-alike substitutions may occur. Though we review the report and make efforts to correct it, we do recommend that the report be read carefully in proper context to recognize any text inaccuracies. Dictated by: José Miguel LAMBERT Interpreted: Nils Bartlett MD on 02/18/2025 at 14:19 Transcribed by: JULIET on 02/18/2025 at 14:21 Approved by: Nils Bartlett M.D. on 02/18/2025 at 21:28
== END ==
LOC: US 12:40
PROVIDERS: PCP Physician Assistant; Referring Provider Obstetrics & Gynecology; Visit Provider Obstetrics & Gynecology
DX: O24.414 Gestational diabetes mellitus in pregnancy, insulin controlled (principal)
CPT/HCPCS: 76815; 76819

== ENCOUNTER 2025-02-18 13:27 | Outpatient (CLI) | payer OTHER, SELFPAY | END 2025-02-18 14:00 | disposition home or self-care (01) | LOC: LABOR 13:50 → OB 02-19 10:23 | PROVIDERS: PCP Physician Assistant; Referring Provider Obstetrics & Gynecology; Visit Provider Obstetrics & Gynecology | DX: O24.913 Unspecified diabetes mellitus in pregnancy, third trimester (principal); Z79.4 Long term (current) use of insulin; O24.414 Gestational diabetes mellitus in pregnancy, insulin controlled | CPT/HCPCS: 59025; 76815; 76819; G0378; G0379 ==

== ENCOUNTER 2025-02-24 14:07 | Outpatient (CLI) | payer OTHER, SELFPAY | END 2025-02-24 14:51 | disposition home or self-care (01) | LOC: OB 02-25 10:05 | PROVIDERS: PCP Physician Assistant; Referring Provider Obstetrics & Gynecology; Visit Provider Obstetrics & Gynecology | DX: O24.913 Unspecified diabetes mellitus in pregnancy, third trimester (principal); Z3A.31 31 weeks gestation of pregnancy; Z79.4 Long term (current) use of insulin | CPT/HCPCS: G0378; G0379 ==

== ENCOUNTER → 2025-02-27 09:35 | Outpatient (CLI) | payer OTHER, SELFPAY ==
--- NOTE | 2025-02-27 09:38 | DIAB.GDFU ---
Follow-up Gestational Diabetes Assessment Name: Klarissa Lockwood Date: 02/27/25 Time: 930-10am Dx: Gestational Diabetes Provider: Radha NELLIE: 04/22/25 Weeks: 32 Klarissa presents for GDM visit virtually using [facility] Portal. No previous h/o GDM. H/o preeclampsia/HTN in , treated currently with labetalol. NPH of 6-7u AM during vacation to help reduce hyperglycemia, however back to 5u AM and 13u PM. More eating take out for dinner recently, which pc readings at dinner have been more elevated. Plans to grocery shop and eat more home cooking. Taking HS meds with water, no gagging. Has been eating regular CHO tortillas. Moved hydration packet to morning. Drinking more water. Diet Recall: 830-9am: eggs, protein waffles 2, sf syrup or butter 10-11am: nothing or almond butter bar or almond chocolate [place] bar 12p: 1c broccoli cheddar soup with sour dough bread with butter 3p: nothing or same as 10am 530-730p: burrito OR garlic chicken with veggies OR grilled cheese and soup 830-845p: none 1c coffee sf soda 32oz water x 2 electrolyte beverage Anthropometrics: Ht: 68 Wt: 223# 01/2025 224# 01/2025 222# 12/2024 223# 11/2024 Prepregnancy wt: 201# Physical Activity: No program. Self-Monitoring Blood Glucose: Checking FBG and 2 hour pc. 2/6 FBG elevated. 3/7 elevated pc breakfast, 3/6 elevated pc lunch, 5/6 elevated pc dinner. Recent consistent elevated dinner readings due to high CHO intake. Today: Date Pre Post Pre Post Pre Post HS 02/21 91 131 91 182 02/22 91 148 1h 152 1h 189 1h 02/23 107 150 1h 155 1h 155 1h 02/24 91 105 131 117 02/25 92 103 106 151 02/26 97 109 108 145 02/27 110 Last Visit: Date Pre Post Pre Post Pre Post HS 02/07 104 129 122 150 02/08 105 126 148 166 02/09 95 101 121 144 02/10 97 95 101 115 02/11 84 99 154 103 02/12 93 107 158 119 02/13 96 150 Diabetes Medications: 13u NPH HS 5-8u NPH AM Pertinent Labs: Screen: 178mg/dl OGTT: 102, 207, 166 Nutrition Rx: Carbohydrates: Meal: 45-g lunch and dinner; 30g breakfast Snack: 15-30g Nutrition Diagnosis: Altered nutrition related lab value r/t GDM dx aeb recent OGTT Inadequate CHO intake r/t limiting intake to manage BG in aeb diet recall-- improved Excessive CHO intake r/t eating take out aeb diet recall and elevated pc readings- new Intervention: This participant was very receptive. Provided appropriate educational handouts. 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
== END ==
LOC: DIET 09:36
PROVIDERS: PCP Physician Assistant; Referring Provider Obstetrics & Gynecology
DX: O24.414 Gestational diabetes mellitus in pregnancy, insulin controlled (principal); Z71.3 Dietary counseling and surveillance; Z3A.32 32 weeks gestation of pregnancy
CPT/HCPCS: 97803

== ENCOUNTER 2025-03-04 11:48 | Outpatient (CLI) | payer OTHER, SELFPAY | END 2025-03-04 12:30 | disposition home or self-care (01) | LOC: LABOR 12:27 → OB 15:11 | PROVIDERS: PCP Physician Assistant; Referring Provider Obstetrics & Gynecology; Visit Provider Obstetrics & Gynecology | DX: O24.913 Unspecified diabetes mellitus in pregnancy, third trimester (principal); Z79.4 Long term (current) use of insulin; Z3A.33 33 weeks gestation of pregnancy | CPT/HCPCS: 59025; G0378; G0379 ==

== ENCOUNTER 2025-03-12 10:47 | Outpatient (CLI) | payer OTHER, SELFPAY | END 2025-03-12 11:22 | disposition home or self-care (01) | LOC: OB 14:15 | PROVIDERS: PCP Physician Assistant; Referring Provider Obstetrics & Gynecology; Visit Provider Obstetrics & Gynecology | DX: O24.414 Gestational diabetes mellitus in pregnancy, insulin controlled (principal); Z3A.34 34 weeks gestation of pregnancy | CPT/HCPCS: 59025; G0378; G0379 ==

== ENCOUNTER → 2025-03-13 09:26 | Outpatient (CLI) | payer OTHER, SELFPAY ==
--- NOTE | 2025-03-13 09:29 | DIAB.GDFU ---
Follow-up Gestational Diabetes Assessment Name: Klarissa Lockwood Date: 03/13/25 Time: 930-10a Dx: Gestational Diabetes Provider: Radha NELLIE: 04/22/25 Weeks: 34 Klarissa presents for GDM visit virtually using Portal. No previous h/o GDM. H/o preeclampsia/HTN in , treated currently with labetalol. Current plan of IOL at 38 weeks, pending continued BP management. CGM sensors have been variable lately. Using finger sticks when needed. Calibrating sensor. Life has been busy, skipping snacks sometimes. May be causing some lows. Eating more carbs once per day. Dinner numbers are higher. Eating more comfort foods at dinner. NPH of 8u AM and 17u PM. Has questions about how to reduce risks for T2DM. Endorses hx of 6-9 months with each child. Is familiar with consulting resources at . Anthropometrics: Ht: 68 Wt: 223# 01/2025 224# 01/2025 222# 12/2024 223# 11/2024 Prepregnancy wt: 201# Physical Activity: No program. Self-Monitoring Blood Glucose: Checking FBG and 2 hour pc. 05/07 FBG elevated. 1/6 elevated pc breakfast, 1/6 elevated pc lunch, 3/6 elevated pc dinner. Today: Date Pre Post Pre Post Pre Post HS 03/07 90 116 112 141 03/08 104 104 122 114 03/09 96 114 76 120 03/10 90 148 90 140 03/11 86 107 110 103 03/12 84 106 117 140 03/13 80 Last Visit: Date Pre Post Pre Post Pre Post HS 02/21 91 131 91 182 02/22 91 1481h 1521h 1891h 02/23 107 1501h 1551h 1551h 02/24 91 105 131 117 02/25 92 103 106 151 02/26 97 109 108 145 02/27 110 Diabetes Medications: 17u NPH HS 8u NPH AM Pertinent Labs: Screen: 178mg/dl OGTT: 102, 207, 166 Nutrition Rx: Carbohydrates: Meal: 45-g lunch and dinner; 30g breakfast Snack: 15-30g Nutrition Diagnosis: Altered nutrition related lab value r/t GDM dx aeb recent OGTT Excessive CHO intake r/t eating take out and eating larger portions at dinner aeb diet recall and elevated pc readings Intervention: This participant was very receptive. Provided appropriate educational handouts. Discussed the following topics: Potential for titrating up or down insulin in relation to BG Encouraged reduced CHO portions at dinner Recent blood sugar results and impact of food and hormones Review of macronutrient recommendations during Benefits, resources, and nutrition for recommendations for nutrition and physical activity recommendations for T2DM risk reduction? - OGTT at 6-12 weeks - Checking blood sugars twice per week (goal: fasting <100 mg/dL and 2 hour pc <140 mg/dL) until 6 week check-up - HgA1c q 1-3 years. Goals: If FBG >95, consider increase NPH by 2-3u- met Reduce eating out- in progress Aim for slight reduction in CHo at dinner- new Follow recs for nutrition and SMBG- new Continue to use finger sticks to calibrate CGM- new Follow-up: GEOFF CHILDS follow-up remote CGM check in one week and will call prn. Encouraged pt to also call with any questions or follow-up needs prn. She agreed. Melani Corrales RDN, AMADEO Certified Diabetes Care and Emergency Response Coordinator T: [phone] F: [phone] [email or web address] Thank you for this referral
== END ==
LOC: DIET 09:27
PROVIDERS: PCP Physician Assistant; Referring Provider Obstetrics & Gynecology
DX: O24.414 Gestational diabetes mellitus in pregnancy, insulin controlled (principal); Z3A.34 34 weeks gestation of pregnancy; Z71.3 Dietary counseling and surveillance
CPT/HCPCS: 97803

== ENCOUNTER 2025-03-19 10:29 | Outpatient (CLI) | payer OTHER, SELFPAY ==
--- OUTSIDE RECORDS SUMMARY | 2025-03-21 15:14 | XMS_ITS | Encounter Summary ---
Author Organization [facility] Address [facility] [address] Care Team Providers Care Creche Attendant Name Role Phone Salma Manuel Primary Care Provider [phone] Encounter Details Date Type Department Care Team (Late st Contact Info) Description 09/03/2020 Scanned Document SCANNED ONLY Scanned, Document Social History Tobacco Use Types Packs/Day Years Used Date Smoking Tobacco: Former Cigarettes 0.3 7.2 1 - 2014 E-Cigarettes Smokeless Tobacco: Never Comments:Former cigarette sm oker 2014/Currently Vapes 2020 (multiple times/day) Alcohol Use Standard Drinks/Week Comments Yes 0.8 (1 standard drin k = 0.6 oz pure alcohol) Only occasionally at this time Comments No Sex and Gender Information Value Date Recorded Sex Assigned at Not on file Legal Sex Female 11:16 AM PST Gender Identity Not on file Sexual Orientation Not on file documented as of this encounter Plan of Treatment Not on file documented as of this encounter Visit Diagnoses Not on filedocumented in this encounter Care Teams Creche Attendant Relationship Specialty Start Date End Date Salma Manuel PA PCP - General Physician [employer] Engineer 11/02/16 documented as of this encounter
--- OUTSIDE RECORDS SUMMARY | 2025-03-21 15:14 | XMS_ITS | Encounter Summary ---
Author Organization [facility] Address [address] [address] Care Team Providers Care Linen Supply Load Builder Name Role Phone Salma Manuel Primary Care Provider [phone] Reason for Referral * Specialty Services (Routine) - Closed Specialty Diagnoses / Procedures Referred By Contac marcela Referred To Contact Gastroenterology Diagnoses Gastroesophageal reflux disease with esophagitis without hemorrhage Jose M Dhillon MD [address] [address] Phone: tel: fax: GASTROENTEROLOGY - [place], [place] [address] [place] [address] Phone: tel: fax: Referral ID Status Reason Start Date Expiration Date Visits Re quested Visits Authorized [id number] Closed 05/05/2020 05/05/2021 1 1 Encounter Details Date Type Department Care Team (Latest Contact Info) Description 05/05/2020 Order Ordering Box Operator [facility] Patient Access [address] [place] [address] Jose M Dhillon MD [address] [address] Gastroesophageal reflux disease with esophagitis without hemorrhage Social History Tobacco Use Types Packs/Day Years Used Date Smoking Tobacco: Every Day Cigarettes 0.3 18.1 Started: 02/07/2007 Smokeless Tobacco: Never Alcohol Use Standard Drinks/Week Comments Yes 0.8 (1 standard drink = 0.6 oz p ure alcohol) Comments No Sex and Gender Information Value Date Recorded Sex Assigned at Not on file Legal Sex Female 11:16 AM PST Gender Identity Not on file Sexual Orientation Not on file documented as of this encounter Plan of Treatment Scheduled Referrals Name Type Priority Associated Diagnoses Orde r Schedule *Int- (Gastroenterology ) [facility] Referral Routine Gastroesophageal Reflux Disease With Esophagitis Without Hemorrhage Ordered: 05/05/2020 documented as of this encounter Visit Diagnoses Diagnosis Gastroesophageal reflux disease with esophagitis without hemorrhage documented in this encounter Additional Health Concerns Infection Onset Date Last Indicated Resolved Time RULE-OUT Novel Coronavirus (COVID-19) 06/26/2020 06/29/2020 06/30/2020 2:[address] documented as of this encounter Care Teams Linen Supply Load Builder Relationship Specialty Start Date End Date Salma Manuel PA PCP - General Physician [employer] 11/02/16 documented as of this encounter
--- OUTSIDE RECORDS SUMMARY | 2025-03-21 15:14 | XMS_ITS | Encounter Summary ---
Author Organization [facility] Address [address] [place] [address] Care Team Providers Care Fitness Centre Manager Name Role Phone Salma Manuel Primary Care Provider [phone] [phone] Encounter Details Date Type Department Care Team (Late st Contact Info) Description 08/08/2022 Orders Only [facility] [place] [address] [place] [address] Salma Manuel PA [address] [place], [place] [id number] Polycystic ovarian syndrome; Irregular menstrual cycle Social History Tobacco Use Types Packs/Day Years Used Date Smoking Tobacco: Former Cigarettes 0.3 7.2 1 - 2014 Smokeless Tobacco: Never Comments:Former cigarette sm oker 2014/Currently Vapes 2020 (multiple times/day) Alcohol Use Standard Drinks/Week Comments Yes 4 (1 standard drink = 0.6 oz pur e alcohol) Only occasionally at this time Depression Answer Date Recorded Last PHQ Score 0 07/06/2021 Comments No Sex and Gender Information Value Date Recorded Sex Assigned at Not on file Legal Sex Female 11:16 AM PST Gender Identity Not on file Sexual Orientation Not on file documented as of this encounter Plan of Treatment Not on file documented as of this encounter Results * Testosterone, Males/Females/Children, Free (LC-MS/MS) (08/08/2022 4:29 PM PDT) Testosterone, Free 2.8 0.2 - 5.0 pg/mL 08/13/2022 3:22 PM PDT [facility]ER Comment: This test was developed and its analytical performance characteristics have been determined by [employer]. It has not been cleared or approved by the FDA. This assay has been validated pursuant to the CLIA regulations and is used for clinical purposes. Test Performed at: [facility] [id number] [place] [phone] FELIZ LOYD MD Blood Venipuncture / Unknown 08/08/2022 4:29 PM PDT 08/08/2022 4:29 PM PDT Narrative [facility] - 08/13/2022 3:22 PM PDT Performing Organization Information: Site ID: [id number] Name: [facility] Address: [address] [place] [phone] Director: FELIZ LOYD MD Salma AMADO LAB BLOOD ORDERABLES [facility] Result [facility]ER [phone] * Dehydroepiandrosterone (08/08/2022 4:29 PM PDT) DHEA(Dehydroepia ndrosterone),Unc onjugated,LC/MS/ MS 472 ng/dL 08/12/2022 9:56 PM PDT [facility] Comment: Adult Female Reference Ranges Pre-Menopausal Mid Follicular: 385-1143 ng/dL Surge: 345-2030 ng/dL Mid Luteal: 414-1295 ng/dL Post-Menopausal 77-851 ng/dL This test was developed and its analytical performance characteristics have been determined by [employer] [facility]. It has not been cleared or approved by FDA. This assay has been validated pursuant to the CLIA regulations and is used for clinical purposes. Test Performed at: [facility] [address] [place] [address] SHREYAS PHILLIPS MD,PHD,FRANKIE Blood Venipuncture / Unknown 08/08/2022 4:29 PM PDT 08/08/2022 4:29 PM PDT Narrative GINGER - 08/12/2022 9:56 PM PDT Performing Organization Information: Site ID: [id number] [facility]: [facility] Address: [address] [place] [phone] Director: SHREYAS PHILLIPS MD,PHD,FRANKIE Salma AMADO LAB BLOOD ORDERABLES Kr[facility] l Result Performing Organization Address [facility] Co de Phone Number [facility] [phone] * Estrone by TMS (08/08/2022 4:29 PM PDT) [facility] Estrone, LC/MS/MS 40 pg/mL 08/13/2022 5:37 PM PDT [facility] Comment: Adult Female Reference Ranges for Estrone: Follicular Phase: 10-138 pg/mL Luteal Phase: 16-173 pg/mL Postmenopausal Phase: < or = 65 pg/mL Pediatric Female Reference Ranges for Estrone: Pre-pubertal (1-9 years): < or = 34 pg/mL 10-11 years: < or = 72 pg/mL 12-14 years: < or = 75 pg/mL 15-17 years: < or = 188 pg/mL This test was developed and its analytical performance characteristics have been determined by [employer] [facility]. It has not been cleared or approved by FDA. This assay has been validated pursuant to the CLIA regulations and is used for clinical purposes. Test Performed at: [facility] [address] SHREYAS PHILLIPS MD,PHD,FRANKIE Blood Venipuncture / Unknown 08/08/2022 4:29 PM PDT 08/08/2022 4:29 PM PDT [facility] - 08/13/2022 5:37 PM PDT Performing Organization Information: Site ID: [id number] Name: [facility] Address: [address] [place] [phone] Director: SHREYAS PHILLIPS MD,PHD,FRANKIE Salma AMADO LAB BLOOD ORDERABLES [facility] l Result Performing Organization Address City/[facility]/ZIP Co de Phone Number [facility] [phone] * Estradiol (08/08/2022 4:29 PM PDT) Pathologist [facility] Estradiol 40 See comment. pg/mL 08/09/2022 5:26 PM PDT [facility] [employer] 710 Comment: Results may be falsely affected for patients undergoing biotin therapy or taking supplements which contain biotin. Menstruating females (by day in cycle relative to LH peak) Follicular phase (-12 to -4 days) 20-144 pg/ml Midcycle (-3 to +2 days) 64-357 pg/ml Luteal Phase (+4 to +12 days) 56-214 pg/ml Postmenopausal females (untreated) 0-32 pg/ml Blood Venipuncture / Unknown 08/08/2022 4:29 PM PDT 08/08/2022 4:29 PM PDT Salma AMADO LAB BLOOD ORDERABLES Kr[facility] l Result Performing Organization Address [facility] de Phone Number [facility] [employer] [address] [place] [phone] * Progesterone (08/08/2022 4:29 PM PDT) [facility] Progesterone 0.66 See comment. ng/mL 08/09/2022 5:26 PM PDT [facility] Comment: : First trimester: 11.22-90.00 ng/mL Second trimester: 25.55-89.40 ng/mL Third trimester: 48.40-422.50 ng/mL Non : Follicular phase: 0-1.40 ng/mL Luteal phase: 3.34-25.56 ng/mL Mid luteal phase: 4.44-28.03 ng/mL Postmenopausal females: 0-0.73 ng/mL Blood Venipuncture / Unknown 08/08/2022 4:29 PM PDT 08/08/2022 4:29 PM PDT Salma AMADO LAB BLOOD ORDERABLES Kr[facility] l Result Performing Organization Address [facility] de Phone Number [facility] [address] [place] [address] * TSH Reflex to FT4 if Indicated (08/08/2022 4:29 PM PDT) [facility] TSH 0.839 0.550 - 4.780 uIU/mL 08/09/2022 5:26 PM PDT [facility] 710 Blood Venipuncture / Unknown 08/08/2022 4:29 PM PDT 08/08/2022 4:29 PM PDT us Salma AMADO LAB BLOOD ORDERABLES [facility]a mejia Result [facility] [address] [place] [address] * (ABNORMAL) Comprehensive Metabolic Panel (08/08/2022 4:29 PM PDT) [facility] Sodium 138 136 - 145 mmol/L 08/08/2022 5:11 PM PDT [facility] Potassium 3.8 3.5 - 5.1 mmol/L 08/08/2022 5:11 PM PDT [facility] Chloride 101 95 - 109 mmol/L 08/08/2022 5:11 PM PDT [facility] CO2 28 21 - 32 mmol/L 08/08/2022 5:11 PM PDT [facility] Anion Gap 9 3 - 15 mmol/L 08/08/2022 5:11 PM PDT [facility] Glucose 107(H) 70 - 99 mg/dL 08/08/2022 5:11 PM PDT [facility] BUN 15 7 - 18 mg/dL 08/08/2022 5:11 PM PDT [facility] Creatinine 0.80 0.55 - 1.02 mg/dL 08/08/2022 5:11 PM PDT [facility] eGFR (CKD-EPI 2020) 99 >=60 mL/min/1. 73m2 08/08/2022 5:11 PM PDT [facility] Protein, Total 7.8 6.4 - 8.2 g/dL 08/08/2022 5:11 PM PDT [facility] Albumin 4.0 3.4 - 5.0 g/dL 08/08/2022 5:11 PM PDT [facility] Globulin 3.8 2.7 - 4.3 g/dL 08/08/2022 5:11 PM PDT [facility] Calcium 8.8 8.5 - 10.1 mg/dL 08/08/2022 5:11 PM PDT [facility] Bilirubin, Total 0.3 0.1 - 1.2 mg/dL 08/08/2022 5:11 PM PDT [facility] Alkaline Phosphatase 118(H) 46 - 116 U/L 08/08/2022 5:11 PM PDT [facility] ALT 26 12 - 78 U/L 08/08/2022 5:11 PM PDT [facility] AST 18 15 - 41 U/L 08/08/2022 5:11 PM PDT [facility] Fasting Status not fasting Hours 5:11 PM PDT [facility] Blood Venipuncture / Unknown 08/08/2022 4:29 PM PDT 08/08/2022 4:29 PM PDT us Salma AMADO LAB BLOOD ORDERABLES [place] [address] documented in this encounter Visit Diagnoses Diagnosis Polycystic ovarian syndrome Polycystic ovaries Irregular menstrual cycle documented in this encounter Care Teams Fitness Centre Manager Relationship Specialty Start Date End Date Salma Manuel PA PCP - General Physician Sourcing Internship 11/02/16 documented as of this encounter
--- OUTSIDE RECORDS SUMMARY | 2025-03-21 15:14 | XMS_ITS | Encounter Summary ---
Author Organization [facility] Address [address] [address] Care Team Providers Care Plugger Worker Name Role Phone Salma Manuel Primary Care Provider [phone] [phone] Encounter Details Date Type Department Care Team (Late st Contact Info) Description 03/05/2023 Documentation [facility] MARKETING MANAGER Scanned, Document Social History Tobacco Use Types [...] on filedocumented in this encounter Care Teams Plugger Worker Relationship Specialty Start Date End Date Salma Manuel PA PCP - General Physician Certified Executive Chef 11/02/16 documented as of this encounter
--- OUTSIDE RECORDS SUMMARY | 2025-03-21 15:14 | XMS_ITS | Clinical Summary ---
Author Organization [facility] Address [facility] [address] Care Team Providers Care Help Desk Agent Name Role Phone Salma Manuel Primary Care Provider [phone] [phone] Allergies No known active allergies Medications amoxicillin (AMOXIL) 500 MG capsule 500 mg 3 (three) times daily 03/08/2023 Active vitamin [id number]-viu -epa-fish oil (GUMMY ) 400 mcg-35 mg -25 mg-5 mg chew tablet Take 1 tablet by mouth daily Chew tab Active labetaloL (NORMODYNE) 100 MG tablet Take 1 tablet by mouth Daily at 7:00 PM 11/26/2024 Active Active Problems Problem Noted Date Diagnosed Date Lumbar strain, sequela 04/29/2013 SAMANTHA II (cervical intraepithelial neoplasia II) 1 06/04/2006 Overview (06/02/2020): LEEP excision of the cervix on 12/27/2006 for SAMANTHA II of the cervix LEEP conization 07/16 for recurrent SAMANTHA II Normal pap smear 10/01/10 History of tobacco use 04/03/2007 Overview (06/04/2020): Quit 2017; now Vaping 2019--trying to quit vaping Comments Yes Resolved Problems Problem Noted Date Diagnosed Date Resolved Date GERD (gastroesophageal reflux disease) 06/03/2020 07/06/2021 Overview (07/01/2021): EGD bx--06/29/21 mild reflux Panic attacks 07/23/2008 06/03/2020 Encounters Date Type Department Care Team Description 01/06/2025 Orders Only [facility] [address] [address] Christianne Loera, DO Other abnormal glucose 12/31/2024 Orders Only [facility] [address] [phone] Lizeth Fisher MD Encounter for supervision of other normal , second trimester; Encounter for screening for diabetes mellitus; Encounter for screening for diseases of the blood and blood-forming organs and certain disorders involving the immune mechanism 12/27/2024 3:47 PM PDT - 12/27/2024 11:59 PM PDT Hospital Encounter [facility] Ultrasound [address] [place] [address] Lizeth Fisher MD Encounter for follow-up ultrasound of anatomy Discharge Disposition: Home or Self Care from Last 3 Months Immunizations Immunization Administration Dates Next Due DTP 02/19/1993 Dpt 02/19/1993 Flu 03/06/2003,03/11/2002,03/10/2000 HPV Quadrivalent 07/22/2011,10/01/2010, 9 HepB 03/10/1999 Hepatitis B Adult 03/10/1999 Influenza quad (PF) 01/17/2017 Influenza quad with Preserva tive (6 months +) 05/14/2019,02/06/2018 Influenza trivalent (PF) (3 years and up) 04/17/2006 Influenza trivalent with pre servative (6 months and up) 04/17/2006,03/06/2003,03/11/2002,1999 MMR 03/10/1999 Moderna SARS-CoV-2 Vaccination 05/15/2021,2020,07/21/2020 OPV 02/19/1993 Td (PF) 2 Lf 03/10/1999 Td (PF) 5 Lf 03/10/1999 Tdap 04/18/2017,07/22/2011 Family History Medical History Relation Comments ADD / ADHD Father Hypertension (High blood pressure) Mother Relation Status Comments Father Mother Sister Alive Social History Tobacco Use Types Packs/Day Years Used Date Smoking Tobacco: Former Cigarettes 0.3 7.2 1 - 2014 Smokeless Tobacco: Never Tobacco Cessation:Counseling Given: Not Answered Comments:Former cigarette smoker 2014/former Vaping 2020 (multiple times/day) Alcohol Use Standard Drinks/Week Comments Not Currently 0 (1 standard drink = 0.6 oz pur e alcohol) Depression Answer Date Recorded Last PHQ Score 0 07/06/2021 Comments Yes Sex and Gender Information Value Date Recorded Sex Assigned at Not on file Legal Sex Female 11:16 AM PST Gender Identity Not on file Sexual Orientation Not on file Last Filed Vital Signs Vital Sign Reading Time Taken Comments Blood Pressure 145/81 12/13/2024 12:00 PM PDT Pulse 85 12/13/2024 12:00 PM PDT Temperature 36.9 C (98.4 F) 12/13/2024 10:26 AM PDT Respiratory Rate 16 12/13/2024 12:0 0 PM PDT Oxygen Saturation 99% 12/13/2024 12: 00 PM PDT Inhaled Oxygen Concentration - - Weight 100.4 kg (221 lb 6.4 oz) 025 10:24 AM PDT Height 173 cm (5' 8.11) 12/13/2024 10: 24 AM PDT Body Mass Index 33.56 12/13/2024 10:24 AM PDT Plan of Treatment Health Maintenance Due Date Last Done Comments Disability Screening 1988 Pap Smear 06/04/2023 06/04/2020, 02/07/2014 Drug, Alcohol, and Depression Screening 05/01/2024 07/06/2021, 06/04/2020 SOGIE 05/01/2024 Covid-19 Vaccine ( season) 2024 05/15/2021, 08/18/2020, 07/21/2020 Cervical Cancer Screening 06/04/2025 HPV/COTEST 06/04/2025 06/04/2020 DTaP/Tdap/Td Vaccine (5 - Td or Tdap) 04/18/2027 04/18/2017, 07/22/2011, 03/10/1999, Additional history exists Zoster (1 of 2) 02/01/2038 RSV Vaccines (1 - 1-dose 75+ series) 02/01/2063 HIV Screening Completed 04/04/2007 HPV Vaccine Completed 07/22/2011, 06/0 06/2010, 08/26/2008 Influenza Vaccine Discontinued 05/14/2019, , 01/17/2017, Additional history exists Hepatitis C Screening Discontinued Pneumococcal Ages 0-5 Years and At Risk Patients Ages 6-49 Years Aged Out No longer eligible based on patient's age to complete this topic Varicella Vaccine Discontinued Procedures Procedure Name Priority Date/Time Associated Diagnosis Comments *GLUC MARGO 3 HR GEST DM 100GM, LAB GENERATED ORDER Routine 01/07/2025 12:34 PM PDT Other abnormal glucose *GLUC MARGO 2 HR GEST DM DIAG 100GM, LAB GENERATED ORDER Routine 01/07/2025 11:37 AM PDT Other abnormal glucose *GLUC MARGO 1 HR GEST DM DIAG 100GM, LAB GENERATED ORDER Routine 01/07/2025 10:28 AM PDT Other abnormal glucose *GLUC MARGO FAST GEST DM DIAG 100GM, LAB GENERATED ORDER Routine 01/07/2025 9:27 AM PDT Other abnormal glucose *GLUC MARGO FAST GEST DM DIAG 100GM, LAB GENERATED ORDER Routine 01/07/2025 9:27 AM PDT Other abnormal glucose HEMOGLOBIN & HEMATOCRIT Routine 12/31/2024 12:32 PM PDT Encounter for supervision of other normal , second trimester Encounter for screening for diseases of the blood and blood-forming organs and certain disorders involving the immune mechanism GLUCOSE, GEST DM 1 HR (50 GM), SCREEN Routine 12/31/2024 12:32 PM PDT Encounter for supervision of other normal , second trimester Encounter for screening for diabetes mellitus US OB F/U SZ/ORGAN SINGLE FETUS Routine 12/27/2024 4:35 PM PDT Encounter for follow-up ultrasound of anatomy PAP, AND HPV (REFLEX TO 16,18/45 GENOTYPING) Routine 06/04/2020 3:54 PM PST Encounter for gynecological examination with Papanicolaou smear of cervix from Last 3 Months or Most Recently Relevant to Health Maintenance Results * Gluc Margo 3 Hr Gest DM 100gm (01/07/2025 12:34 PM PDT) 3 Hr Glucose 69 65 - 140 mg/dL 01/07/2025 1:02 PM PDT [facility] Blood Venipuncture / Unknown 01/07/2025 12:34 PM PDT 01/07/2025 12:36 PM PDT Narrative [facility] - 01/07/2025 1:02 PM PDT The diagnosis of Gestational Diabetes Mellitus requires that any two or more of the glucose values exceed the reference range. us Christianne Loera DO LAB BLOOD ORDERABLES Final Result Performing Organization Address City/[facility]/ZIP Co de Phone Number [facility] [employer] [place] [address] [place] [address] * (ABNORMAL) Gluc Margo 2 Hr Gest DM 100gm (01/07/2025 11:37 AM PDT) 2 Hr Glucose 166(H) 65 - 155 mg/dL 01/07/2025 12:00 PM PDT [facility] Blood Venipuncture / Unknown 01/07/2025 11:37 AM PDT 01/07/2025 11:37 AM PDT us Christianne Loera DO LAB BLOOD ORDERABLES Final Result [facility] [employer] [place] [address] [place] [address] * (ABNORMAL) Gluc Margo 1 Hr Gest DM 100gm (01/07/2025 10:28 AM PDT) 1 Hr Glucose 207(H) 65 - 180 mg/dL 01/07/2025 11:02 AM PDT [facility] Blood Venipuncture / Unknown 01/07/2025 10:28 AM PDT 01/07/2025 10:28 AM PDT us Christianne Perezs DO LAB BLOOD ORDERABLES Final Result Performing Organization Address [facility]/ZIP Co de Phone Number [facility] [address] [place] [address] * (ABNORMAL) Gluc Margo Fasting Gest DM 100gm (01/07/2025 9:27 AM PDT) Glucose,Fastin g 102(H) 70 - 95 mg/dL 01/07/2025 10:12 AM PDT [facility] Fasting Status 12 Hours 01/07/2025 10:12 AM PDT [email or web address] Glucola Dose 100 gm 01/07/2025 10:12 AM PDT [facility] Blood Venipuncture / Unknown 01/07/2025 9:27 AM PDT 01/07/2025 9:27 AM PDT Christianne Loera DO LAB BLOOD ORDERABLES Final Result Performing Organization Address [facility] Co de Phone Number [facility] [address] [place] [phone] * (ABNORMAL) Glucose, Gest DM 1 Hour (50 gm), Screen (12/31/2024 12:32 PM PDT) Glucose, Gestational DM Screen, 1 Hr 178(H) 70 - 139 mg/dL 12/31/2024 1:32 PM PDT [facility] Comment:A result of >= 140 m g/dL 1 hour after the 50 gram load indicates the need for a full diagnostic, 100 gram OGTT (Gestational DM Diagnostic Profile, 3 hr) performed in a fasting state. Glucola Dose 50 grams gm 12/31/2024 1:32 PM PDT [facility] Blood Venipuncture / Unknown 12/31/2024 12:32 PM PDT 12/31/2024 12:32 PM PDT Lizeth Fisher MD LAB BLOOD ORDERABLES Final R esult Performing Organization Address City/[facility]/ZIP Co de Phone Number [facility] [address] [place] [phone] * Hemoglobin & Hematocrit (12/31/2024 12:32 PM PDT) HGB 12.2 11.5 - 15.0 g/dL 12/31/2024 1:09 PM PDT [facility] HCT 36.6 34.8 - 45.0 % 12/31/2024 1:09 PM PDT [facility] Blood Venipuncture / Unknown 12/31/2024 12:32 PM PDT 12/31/2024 12:32 PM PDT us Lizeth Fisher MD LAB BLOOD ORDERABLES Final R esult [facility] [address] [place] [address] * PIMC:OB US Ultrasound (GROWTH / ANATOMY / FOLLOW-UP), Single Gestation (12/27/2024 4:35 PM PDT) Anatomical Region Laterality Modality Ultrasound 12/29/2024 4:23 PM PDT Narrative 12/29/2024 4:26 PM PDT US OB F/U SZ/ORGAN SINGLE FETUS Clinical: US OB follow up abdominal only. imcomplete anatomy scan. check kidneys and spine Comparison: 12/04/2024 Procedure: Transabdominal imaging Findings: Single living intrauterine gestation is present in yahir breech position. Placenta is posterior without previa. Amniotic fluid volume normal. Amniotic fluid index 13.8 cm. Cervix Long and closed. Neither ovary is seen due to overlying bowel gas. heart rate is 159 and regular. Normal four-chamber heart and both outflow tracts. Left-sided stomach, both kidneys, urinary bladder, and spine appear normal. Lateral ventricles, posterior fossa, and facial structures appear normal. IMPRESSION: 1. Single living intrauterine gestation with gestational age 23 weeks 3 days based on established due date 04/22/2025. 2. Normal kidneys and spine. This completes the survey of anatomy. 3. Posterior placenta without previa. 4. Normal amniotic fluid volume. Electronically signed by: Minerva Lujan MD 12/29/2024 4:26 PM, [place] Time. Reported on: [id number] Procedure Note BackMinerva barahona MD - 12/29/2024 US OB F/U SZ/ORGAN SINGLE FETUS Clinical: US OB follow up abdominal only. imcomplete anatomy scan. check kidneys and spine Comparison: 12/04/2024 Procedure: Transabdominal imaging Findings: Single living intrauterine gestation is present in yahir breech position. Placenta is posterior without previa. Amniotic fluid volume normal. Amniotic fluid index 13.8 cm. Cervix Long and closed. Neither ovary is seen due to overlying bowel gas. heart rate is 159 and regular. Normal four-chamber heart and both outflow tracts. Left-sided stomach, both kidneys, urinary bladder, and spine appear normal. Lateral ventricles, posterior fossa, and facial structures appear normal. IMPRESSION: 1. Single living intrauterine gestation with gestational age 23 weeks 3 days based on established due date 04/22/2025. 2. Normal kidneys and spine. This completes the survey of anatomy. 3. Posterior placenta without previa. 4. Normal amniotic fluid volume. Electronically signed by: Minerva Lujan MD 12/29/2024 4:26 PM, [place] Time. Reported on: [id number] Lizeth Fisher MD [facility] US ORDERABLES Final Resu lt * PAP, and HPV (Reflex to 16,18/45 Genotyping) (06/04/2020 3:54 PM PST) Cervical (qualifier value) SPECIMEN FROM UTERINE CERVIX / Unknown 06/04/2020 3:54 PM PST 06/05/2020 4:55 PM PST Narrative [facility] - 06/10/2020 12:12 PM PST High-risk HPV Panel: Negative Patient: MARY BARROS Case: [id number] Result ID: [id number], [id number] Ordering Provider: FARHAN TRAYLOR MD Collected Date: 06/04/20 SOURCE OF COLLECTION: Cervical ThinPrep Pap Test w/ Imaging LMP: 05/28/2020 PRIOR ABNORMAL PAP: SEE REQ PRIOR BIOPSY: SEE REQ SPECIMEN(S): ThinPrep Vial SPECIMEN ADEQUACY: Satisfactory for interpretation; transformation zone present. CYTOLOGIC SCREENING INTERPRETATION: NEGATIVE FOR INTRAEPITHELIAL LESION OR MALIGNANCY HPV STUDIES: High-risk HPV Panel^1 Negative Re Maldonado MA, CT (ASCP) Cytotechnologist Supervisor Laboratory - [address] [address] - - CLIA: [id number] 1. Performed by nucleic acid amplification at [facility] using FDA- approved Aptima HPV assay. High-risk HPV subtypes include HPV 16, 18, 31, 33, 35, 39, 45, 51, 52, 56, 58, 59, 66 and 68. Uses of the assay in scenarios other than those approved by the FDA should be considered off-label use. Pap smear and HPV testing are screening assays and should not be used as the sole means of detecting cancer. False-positives and false-negatives can occur. Collection of ThinPrep specimens in any manner other than those approved by the FDA should be considered off-label use. Recommendations, if provided, are based on current ASCCP algorithms and patient information available at [facility]. Certain historical and other clinical information which may be important for clinical decision making may not be readily available at [facility], and thus correlation with the patient's complete clinical information is necessary to guide appropriate screening, therapy, and surveillance. End of Report Farhan Traylor MD PATHOLOGY ORDERABLES Final Resu lt [facility] [address] [address] from Last 3 Months or Most Recently Relevant to Health Maintenance Insurance [employer] [place] DEPT OF [place] [employer] [place] Advance Directives * Full Code (Latest Code Status on File) Date Activated Date Inactivated Comments 07/01/2020 2:29 PM 07/01/2020 5:51 PM Care Teams Help Desk Agent Relationship Specialty Start Date End Date Salma Manuel PA PCP - General Physician Multicultural Internship 11/02/16
--- OUTSIDE RECORDS SUMMARY | 2025-03-21 15:14 | XMS_ITS | Encounter Summary ---
Author Organization [facility] Address [address] [place] [address] Care Team Providers Care Net Lead Developer Name Role Phone Salma Manuel Primary Care Provider [phone] [phone] Encounter Details Date Type Department Care Team (Late st Contact Info) Description 05/11/2020 Scanned Document SCANNED ONLY Scanned, Document Social [...] Diagnoses Not on filedocumented in this encounter Additional Health Concerns Infection Onset Date Last Indicated Resolved Time RULE-OUT Novel Coronavirus (COVID-19) 06/26/2020 06/29/2020 06/30/2020 2:[address] documented as of this encounter Care Teams Net Lead Developer Relationship Specialty Start Date End Date Salma Manuel PA PCP - General Physician Decorating Machine Tender 11/02/16 documented as of this encounter
--- OUTSIDE RECORDS SUMMARY | 2025-03-21 15:15 | XMS_ITS | Encounter Summary ---
Author Organization [facility] Address [address] [place] [address] Care Team Providers Care Media Coordinator Name Role Phone Salma Manuel Primary Care Provider [phone] [phone] Reason for Referral * Diagnostic Procedure (Routine) - Pending Review Specialty Diagnoses / Procedures Referred By Contac t Referred To Contact Imaging Diagnoses 20 weeks gestation of Procedures Ultrasound Obstetrical Routine Anatomical Exam Single Gestation Lizeth Fisher MD [address] [place] [address] Phone: tel: fax: [facility] Ultrasound [address] [place] [address] Phone: tel: Referral ID Status Reason Start Date Expiration Date V isits Requested Visits Authorized [id number] Pending Review 10/21/2024 10/21/2025 1 1 Encounter Details Date Type Department Care Team (Latest Contact Info) Description 10/18/2024 Order Research And Development Researcher [facility] Office [address] [place] [phone] Lizeth Fisher MD [address] [place] [address] 20 weeks gestation of Social History Tobacco Use Types Packs/Day Years Used Date Smoking Tobacco: Former Cigarettes 0.3 7.2 1 - 2014 Smokeless Tobacco: Never Comments:Former cigarette sm oker 2014/former Vaping 2020 (multiple times/day) Alcohol Use [...] documented as of this encounter Results * Ultrasound Obstetrical Routine Anatomical Exam Single Gestation (12/04/2024 12:07 PM PDT) Anatomical Region Laterality Modality Ultrasound 12/04/2024 5:09 PM PDT Narrative 12/04/2024 5:14 PM PDT Ultrasound OB routine anatomical exam single gestation Clinical: Anatomy Comparison: 09/13/2024 Procedure: Obstetrical ultrasound. Findings: There is a single live intrauterine fetus in breech position. The quantity of amniotic fluid is normal. AURELIO: 14.5 cm. There is a posterior placenta without previa. Growth Parameters: BPD: 4.6 cm 20 weeks 0 days Head Circ: 17.6 cm 20 weeks 1 days Abdomen Circ: 15.3 cm 20 weeks 3 days Femur Length: 3.3 cm 20 weeks 3 days EFW: 350 g EFW percentile: 59% Established gestational age is 20 weeks 1 day corresponding to an EDC of 04/22/2025 by LMP. Assessment of the fetus demonstrated regular cardiac rhythm at 144 bpm. There is a normal appearance of the four-chamber view of the heart, right ventricular outflow tract, left ventricular outflow tract, anterior abdominal wall, three-vessel umbilical cord, stomach, bladder, cerebral ventricles, and posterior fossa. extremities and somatic motion appear grossly normal. facial structures appeared grossly normal. spine and kidneys suboptimally visualized due to position. No maternal uterine or adnexal masses were identified. The right ovary was not identified. The left ovary measures 2.7 x 1.6 x 2.9 cm. The uterine cervix appeared normal with a length of at least 5.2 cm. Impression: 1. Single live intrauterine fetus. Established gestational age by last menstrual period is 20 weeks 1 day corresponding to an EDC of 04/22/2025. 2. Normal quantity amniotic fluid. 3. Posterior placenta without previa. 4. No anatomic abnormality identified. spine and kidneys incompletely visualized due to lie. Follow-up recommended in 2 to 4 weeks. Electronically signed by: Barbara Echavarria MD 12/04/2024 5:14 PM, [employer]. Reported on: [id number] Procedure Note Barbara Echavarria MD - 12/04/2024 Ultrasound OB routine anatomical exam single gestation Clinical: Anatomy Comparison: 09/13/2024 Procedure: Obstetrical ultrasound. Findings: There is a single live intrauterine fetus in breech position. The quantity of amniotic fluid is normal. AURELIO: 14.5 cm. There is a posterior placenta without previa. Growth Parameters: BPD: 4.6 cm 20 weeks 0 days Head Circ: 17.6 cm 20 weeks 1 days Abdomen Circ: 15.3 cm 20 weeks 3 days Femur Length: 3.3 cm 20 weeks 3 days EFW: 350 g EFW percentile: 59% Established gestational age is 20 weeks 1 day corresponding to an EDC of 04/22/2025 by LMP. Assessment of the fetus demonstrated regular cardiac rhythm at 144 bpm. There is a normal appearance of the four-chamber view of the heart, right ventricular outflow tract, left ventricular outflow tract, anterior abdominal wall, three-vessel umbilical cord, stomach, bladder, cerebral ventricles, and posterior fossa. extremities and somatic motion appear grossly normal. facial structures appeared grossly normal. spine and kidneys suboptimally visualized due to position. No maternal uterine or adnexal masses were identified. The right ovary was not identified. The left ovary measures 2.7 x 1.6 x 2.9 cm. The uterine cervix appeared normal with a length of at least 5.2 cm. Impression: 1. Single live intrauterine fetus. Established gestational age by last menstrual period is 20 weeks 1 day corresponding to an EDC of 04/22/2025. 2. Normal quantity amniotic fluid. 3. Posterior placenta without previa. 4. No anatomic abnormality identified. spine and kidneys incompletely visualized due to lie. Follow-up recommended in 2 to 4 weeks. Electronically signed by: Barbara Echavarria MD 12/04/2024 5:14 PM, [employer]. Reported on: [id number] Lizeth Fisher MD [facility] US ORDERABLES Final Resu lt documented in this encounter Visit Diagnoses Diagnosis 20 weeks gestation of 20 weeks gestation of documented in this encounter Care Teams Media Coordinator Relationship Specialty Start Date End Date Salma Manuel PA PCP - General Physician Professor Of Genetics 11/02/16 documented as of this encounter
--- OUTSIDE RECORDS SUMMARY | 2025-03-21 15:15 | XMS_ITS | Encounter Summary ---
Author Organization [facility] Address [address] [place] [address] Care Team Providers Care Food Processing Scientist Name Role Phone Salma Manuel Primary Care Provider [phone] Reason for Referral * Diagnostic Procedure (Routine) - Closed Specialty Diagnoses / Procedures Referred By Contac t Referred To Contact Imaging Diagnoses 20 weeks gestation of Procedures Ultrasound Obstetrical Anatomical Exam Single Gestation Lizeth Fisher MD [address] [place] [address] Phone: tel: fax: [facility] Ultrasound [address] [place] [address] Phone: tel: Referral ID Status Reason Start Date Expiration Date Visits Re quested Visits Authorized [id number] Closed 11/23/2016 11/23/2017 1 1 Encounter Details Date Type Department Care Team (Latest Contact Info) Description 11/23/2016 Order Technical Administrative Assistant [facility] Scheduling Office [address] [facility] [place] [phone] Lizeth Fisher MD [address] [place] [address] 20 weeks gestation of Social History [...] of this encounter Results * Ultrasound Obstetrical Anatomical Exam Single Gestation (01/04/2017 1:21 PM PDT) Anatomical Region Laterality Modality Ultrasound 01/04/2017 1:42 PM PDT Narrative 01/04/2017 1:47 PM PDT US OB ANATOMICAL EXAM SINGLE GESTATION Clinical: 20 WK anatomy scan Comparison: None Procedure:Obstetrical ultrasound, complete with anatomic survey. Findings: A single living vertex intrauterine gestation is present. The posterior placenta ends 1.2 cm from the internal cervical os. The amniotic fluid index of 11.0 cm is between the fifth and 50th percentiles of 9.3 and 14.1 cm. Age assessment: BPD 4.4 cm 19 weeks 3 days Head circumference 7.0 cm 19 weeks 4 days. Abdominal circumference 14.9 cm 20 weeks 1 day Femur length 3.2 cm 19 weeks 6 days The head to abdomen and femur length to abdominal circumference ratios are normal. assessment demonstrates regular cardiac rhythm of 150 bpm and respiratory and somatic motion. Normal-appearing four-chamber heart, right ventricular outflow tract, left ventricular outflow tract, cord insertion, three-vessel umbilical cord, left-sided stomach, right and left kidneys, urinary bladder, cervical, thoracic, lumbar, and sacral spine, cerebral ventricles, posterior fossa, right and left upper and lower extremities, orbits, nares/lips, and facial profile are observed. The right ovary is not visualized. The left ovary is normal, volume 5.8 mL. The cervix is 3.7 cm long. Impression: 1. Single living vertex intrauterine gestation, estimated age 20 weeks 0 days +/- 2 weeks based on today's examination. 2. Low marginal placenta 1.2 cm from the internal os. Follow-up ultrasound is recommended in the third trimester. 3. Normal amniotic fluid volume. 4. Normal anatomic survey. 5. Normal cervix length. Electronically signed by: Parveen Cisneros MD 01/04/2017 1:47 PM, [place] Time. Procedure Note Parveen Cisnreos MD - 01/04/2017 US OB ANATOMICAL EXAM SINGLE GESTATION Clinical: 20 WK anatomy scan Comparison: None Procedure:Obstetrical ultrasound, complete with anatomic survey. Findings: A single living vertex intrauterine gestation is present. The posterior placenta ends 1.2 cm from the internal cervical os. The amniotic fluid index of 11.0 cm is between the fifth and 50th percentiles of 9.3 and 14.1 cm. Age assessment: BPD 4.4 cm 19 weeks 3 days Head circumference 7.0 cm 19 weeks 4 days. Abdominal circumference 14.9 cm 20 weeks 1 day Femur length 3.2 cm 19 weeks 6 days The head to abdomen and femur length to abdominal circumference ratios are normal. assessment demonstrates regular cardiac rhythm of 150 bpm and respiratory and somatic motion. Normal-appearing four-chamber heart, right ventricular outflow tract, left ventricular outflow tract, cord insertion, three-vessel umbilical cord, left-sided stomach, right and left kidneys, urinary bladder, cervical, thoracic, lumbar, and sacral spine, cerebral ventricles, posterior fossa, right and left upper and lower extremities, orbits, nares/lips, and facial profile are observed. The right ovary is not visualized. The left ovary is normal, volume 5.8 mL. The cervix is 3.7 cm long. Impression: 1. Single living vertex intrauterine gestation, estimated age 20 weeks 0 days +/- 2 weeks based on today's examination. 2. Low marginal placenta 1.2 cm from the internal os. Follow-up ultrasound is recommended in the third trimester. 3. Normal amniotic fluid volume. 4. Normal anatomic survey. 5. Normal cervix length. Electronically signed by: Parveen Cisneros MD 01/04/2017 1:47 PM, [place] Time. us Lizeth Fisher MD [facility] US ORDERABLES Final Resu lt documented in this encounter Visit Diagnoses Diagnosis 20 weeks gestation of 20 weeks gestation of documented in this encounter Additional Health Concerns Infection Onset Date Last Indicated Resolved Time RULE-OUT Novel Coronavirus (COVID-19) 06/26/2020 06/29/2020 06/30/2020 2:[address] documented as of this encounter Care Teams Food Processing Scientist Relationship Specialty Start Date End Date Salma Manuel PA PCP - General Physician Scale Clerk 11/02/16 documented as of this encounter
--- OUTSIDE RECORDS SUMMARY | 2025-03-21 15:15 | XMS_ITS | Encounter Summary ---
Author Organization [facility] Address [address] [place] [address] Care Team Providers Care Double Needle Operator Lockstitch Name Role Phone Salma Manuel Primary Care Provider [phone] Encounter Details Date Type Department Care Team (Late st Contact Info) Description 12/31/2024 [place], [place] [address] [place] [address] Lizeth Fisher MD [address] [place] [phone] Encounter for supervision of other normal , second trimester; Encounter for screening for diabetes mellitus; Encounter for screening for diseases of the blood and blood-forming organs and certain disorders involving the immune mechanism Social History Tobacco Use Types Packs/Day Years [...] on file documented as of this encounter Procedures Procedure Name Priority Date/Time Associated Diagnosis Comments GLUCOSE, GEST DM 1 HR (50 GM), SCREEN Routine 12/31/2024 12:32 PM PDT Encounter for supervision of other normal , second trimester Encounter for screening for diabetes mellitus HEMOGLOBIN & HEMATOCRIT Routine 12/31/2024 12:32 PM PDT Encounter for supervision of other normal , second trimester Encounter for screening for diseases of the blood and blood-forming organs and certain disorders involving the immune mechanism documented in this encounter Results * Hemoglobin & Hematocrit (12/31/2024 12:32 PM PDT) HGB 12.2 11.5 - 15.0 g/dL 12/31/2024 1:09 PM PDT [facility] HCT 36.6 34.8 - 45.0 % 12/31/2024 1:09 PM PDT [facility] Blood Venipuncture / Unknown 12/31/2024 12:32 PM PDT 12/31/2024 12:32 PM PDT Lizeth Fisher MD LAB BLOOD ORDERABLES Final R esult Performing Organization Address City/[facility]/ZIP Co de Phone Number [facility] [address] [place], [place] [phone] * (ABNORMAL) Glucose, Gest DM 1 Hour (50 gm), Screen (12/31/2024 12:32 PM PDT) Glucose, Gestational DM Screen, 1 Hr 178(H) 70 - 139 mg/dL 12/31/2024 1:32 PM PDT [facility] Comment:A result of >= 140 m g/dL 1 hour after the 50 gram load indicates the need for a full diagnostic, 100 gram OGTT (Gestational DM Diagnostic Profile, 3 hr) performed in a fasting state. Glucola Dose 50 grams gm 12/31/2024 1:32 PM PDT [facility] Blood Venipuncture / Unknown 12/31/2024 12:32 PM PDT 12/31/2024 12:32 PM PDT Lizeth Fisher MD LAB BLOOD ORDERABLES Final R esult [facility] [place] [address] documented in this encounter Visit Diagnoses Diagnosis Encounter for supervision of other normal , second trimester Encounter for screening for diabetes mellitus Encounter for screening for diseases of the blood and blood-forming organs and certain disorders involving the immune mechanism documented in this encounter Care Teams Double Needle Operator Lockstitch Relationship Specialty Start Date End Date Salma Manuel PA PCP - General Physician Toilet Attendant 11/02/16 documented as of this encounter
--- OUTSIDE RECORDS SUMMARY | 2025-03-21 15:15 | XMS_ITS | Encounter Summary ---
Author Organization [facility] Address [address] [place] [address] Care Team Providers Care Landscape Architect Name Role Phone Salma Manuel Primary Care Provider [phone] Encounter Details Date Type Department Care Team (Latest Contact Info) Description 09/12/2024 Order Licensed Retail Supervisor [facility] Office [address] [place] [phone] Lizeth Fisher MD [address] [place] [phone] Hemorrhage in early , unspecified Social History Tobacco Use Types Packs/Day Years [...] as of this encounter Visit Diagnoses Diagnosis Hemorrhage in early , unspecified documented in this encounter Care Teams Landscape Architect Relationship Specialty Start Date End Date Salma Manuel PA PCP - General Physician Superintendent Drivers 11/02/16 documented as of this encounter
--- OUTSIDE RECORDS SUMMARY | 2025-03-21 15:15 | XMS_ITS | Encounter Summary ---
Author Organization [facility] Address [address] [place] [address] Care Team Providers Care Nutrition Aides Teacher Name Role Phone Salma Manuel Primary Care Provider [phone] Encounter Details Date Type Department Care Team (Late st Contact Info) Description 11/02/[address] [place] [place] [address] [place], [place] [phone] Salma Manuel PA [address] [place], [place] [phone] Lizeth Fisher MD [address] [place] [address] 8 weeks gestation of Social History Tobacco Use [...] Procedure Name Priority Date/Time Associated Diagnosis Comments *RQE DRAW OR COLLECT FEE LEVEL 1, LAB GENERATED ORDER Routine 11/02/2016 3:18 PM PDT 8 weeks gestation of PANORAMA NIPT FOR ANEUPL Routine 11/02/2016 3:18 PM PDT 8 weeks gestation of documented in this encounter Results * Panorama NIPT for Aneuploidy (11/02/2016 3:18 PM PDT) Panorama NIPT for Aneuploidy See Scanned Report 11/15/2016 2:56 PM PDT [facility] Other OTHER / Unknown Collection / Unknown 11/02/2016 3:18 PM PDT 11/02/2016 3:19 PM PDT Lizeth Fisher MD LAB BLOOD ORDERABLES Final R esult [facility] [address] [place] [address] * RQE DRAW OR COLLECT FEE LEVEL 1 (11/02/2016 3:18 PM PDT) Other OTHER / Unknown Collection / Unknown 11/02/2016 3:18 PM PDT 11/02/2016 3:19 PM PDT Lizeth Fisher MD LAB BLOOD ORDERABLES Final R esult [facility] [address] [place] [address] documented in this encounter Visit Diagnoses Diagnosis 8 weeks gestation of documented in this encounter Additional Health Concerns Infection Onset Date Last Indicated Resolved Time RULE-OUT Novel Coronavirus (COVID-19) 06/26/2020 06/29/2020 06/30/2020 2:[address] documented as of this encounter Care Teams Nutrition Aides Teacher Relationship Specialty Start Date End Date Salma Manuel PA PCP - General Physician Treater Helper 11/02/16 documented as of this encounter
--- OUTSIDE RECORDS SUMMARY | 2025-03-21 15:15 | XMS_ITS | Encounter Summary ---
Author Organization [facility] Address [address] [address] Care Team Providers Care Bottom Brusher Name Role Phone Salma Manuel Primary Care Provider [phone] Encounter Details Date Type Department Care Team (Late st Contact Info) Description 01/06/2025 Orders Only [place], [place] [address] [place] [address] Christianne Loera, DO [address] [place] [phone] Other abnormal glucose Social History Tobacco Use Types Packs/Day Years [...] as of this encounter Visit Diagnoses Diagnosis Other abnormal glucose documented in this encounter Care Teams Bottom Brusher Relationship Specialty Start Date End Date Salma Manuel PA PCP - General Physician Interchange Agent 11/02/16 documented as of this encounter
--- OUTSIDE RECORDS SUMMARY | 2025-03-21 15:15 | XMS_ITS | Encounter Summary ---
Author Organization [facility] Address [address] [place] [address] Care Team Providers Care Patient Access Representative Name Role Phone Salma Manuel Primary Care Provider [phone] Reason for Referral * Diagnostic Procedure (Routine) - Closed Specialty Diagnoses / Procedures Referred By Contac t Referred To Contact Imaging Diagnoses Encounter for supervision of other normal , unspecified trimester Procedures [facility]:OB US Second/Third trimester (ANATOMY / DATING / LOW RISK), Single Gestation Ultrasound Obstetrical Less than 14 Weeks Travis Ramos MD [address] [place] [address] Phone: tel: fax: [facility] [address] [place] [address] Phone: tel: Referral ID Status Reason Start Date Expiration Date Visits Re quested Visits Authorized [id number] Closed 05/23/2023 05/22/2024 1 1 Encounter Details Date Type Department Care Team (Latest Contact Info) Description 05/23/2023 Order Culinary Chef [facility] Central Scheduling Office [address] [place] [id number] Travis Ramos MD [address] [place] [address] [phone] Encounter for supervision of other normal , unspecified trimester Social History Tobacco Use Types Packs/Day Years [...] documented as of this encounter Results * [facility]:OB US Second/Third trimester (ANATOMY / DATING / LOW RISK), Single Gestation (06/16/2023 10:43AM PST) Anatomical Region Laterality Modality Ultrasound 06/16/2023 11:1 1 AM PST Narrative 06/16/2023 11:26 AM PST US OB > 14 WEEKS Clinical: Supervision, other Comparison: None available Procedure: Second trimester anatomic scan Findings: Dating: ========= Assigned: based on provided history by referring clinician. Assigned GA : 21 weeks 1 day Assigned NELLIE: October 26, 2023 Single live intrauterine fetus. position: Vertex Placenta: Posterior, no evidence for previa Amniotic fluid index 13.1 cm. Normal. Maternal adnexal areas demonstrate no abnormality. Cervix: 4.5 cm. Closed. Biometry: BPD: 4.8 cm ; 22% Head Circumference: 18.3 cm; 20% Abdominal Circumference: 16.6 cm; 58% Femur Length: 3.5 cm; 33% Estimated weight: 410 g. 50 percentile. cardiac activity: 132 bpm 4 chamber heart: normal RV outflow tract: Not well seen LV outflow tract: normal Cord insertion: Placental cord insertion is normal. Anterior abdominal wall: Anterior abdominal wall cord insertion not well visualized. Umbilical cord: 3 vessel Stomach: normal, left sided Kidneys and bladder: normal Spine: normal Cerebral ventricles: normal Posterior fossa structures: normal Extremities: 2 bones not confirmed in the right lower leg. Otherwise normal. Facial structures: Orbits, nose lips and profile are normal. IMPRESSION: 1. Single live intrauterine fetus. Age based on provided dates of 21 weeks 1 day. NELLIE October 26, 2023. Biometry is concordant. 2. Normal amniotic fluid volume. Posterior placenta, without previa. 3. No abnormality identified. However, the right ventricular outflow track, anterior abdominal wall cord insertion and right lower leg where not well visualized due to patient position. Follow-up ultrasound to complete the anatomic survey suggested in 1 to 2 weeks. Electronically signed by: Tanvi De Los Santos MD 06/16/2023 11:26 AM, [place] Time. Procedure Note Tanvi De Los Santos MD - 06/16/2023 US OB > 14 WEEKS Clinical: Supervision, other Comparison: None available Procedure: Second trimester anatomic scan Findings: Dating: ========= Assigned: based on provided history by referring clinician. Assigned GA : 21 weeks 1 day Assigned NELLIE: October 26, 2023 Single live intrauterine fetus. position: Vertex Placenta: Posterior, no evidence for previa Amniotic fluid index 13.1 cm. Normal. Maternal adnexal areas demonstrate no abnormality. Cervix: 4.5 cm. Closed. Biometry: BPD: 4.8 cm ; 22% Head Circumference: 18.3 cm; 20% Abdominal Circumference: 16.6 cm; 58% Femur Length: 3.5 cm; 33% Estimated weight: 410 g. 50 percentile. cardiac activity: 132 bpm 4 chamber heart: normal RV outflow tract: Not well seen LV outflow tract: normal Cord insertion: Placental cord insertion is normal. Anterior abdominal wall: Anterior abdominal wall cord insertion not well visualized. Umbilical cord: 3 vessel Stomach: normal, left sided Kidneys and bladder: normal Spine: normal Cerebral ventricles: normal Posterior fossa structures: normal Extremities: 2 bones not confirmed in the right lower leg. Otherwise normal. Facial structures: Orbits, nose lips and profile are normal. IMPRESSION: 1. Single live intrauterine fetus. Age based on provided dates of 21 weeks 1 day. NELLIE October 26, 2023. Biometry is concordant. 2. Normal amniotic fluid volume. Posterior placenta, without previa. 3. No abnormality identified. However, the right ventricular outflow track, anterior abdominal wall cord insertion and right lower leg where not well visualized due to patient position. Follow-up ultrasound to complete the anatomic survey suggested in 1 to 2 weeks. Electronically signed by: Tanvi De Los Santos MD 06/16/2023 11:26 AM, [facility]. us Travis Ramos MD [facility] US ORDERABLES Final Resul t documented in this encounter Visit Diagnoses Diagnosis Encounter for supervision of other normal , unspecified trimester Encounter for supervision of other normal , unspecified trimester documented in this encounter Care Teams Patient Access Representative Relationship Specialty Start Date End Date Salma Manuel PA PCP - General Physician Foxing Closer 11/02/16 documented as of this encounter
--- OUTSIDE RECORDS SUMMARY | 2025-03-21 15:15 | XMS_ITS | Encounter Summary ---
Author Organization [facility] Address [address] [place] [address] Care Team Providers Care Treating Engineer Helper Name Role Phone Rolanda Coronel Primary Care Prov ider Salma Manuel Primary Care Provider [phone] Encounter Details Date Type Department Care Team (Late st Contact Info) Description 12/09/2014 Documentation [facility] M[facility] OR MACHINERY MECHANIC Aldo Black MD Social History Tobacco Use Types Packs/Day Years [...] on file documented as of this encounter ED Notes * Aldo Black MD - 12/09/2014 3:47 PM PDT Clinical Report - Physicians/Mid Levels [address] [phone] Registration Date/Time: 12/09/2014 15:47 Patient: Klarissa BARROS VisitID: [id number] 24y, F 1990 Time Seen; upon arrival. Arrived- By private vehicle. Historian- patient. Attending Note: I supervised care provided by the resident. We have discussed the case. I have reviewed the note and agree with the plan of treatment. I personally interviewed the patient and examined the patient and was present during the exam by the resident. HISTORY OF PRESENT ILLNESS Chief Complaint: ABDOMINAL PAIN. This started yesterday and is still present. It was abrupt in onset and has been constant. It is described as cramping and well localized and it is described as located in the left lower quadrant and radiating to the low back. At its maximum, severity described as 8 / 10. Modifying factors- worsened by movement, cough and deep breaths. Relieved by rest. Not worsened by food. She has had nausea and diarrhea. No loss of appetite or vomiting. (Menses began yesterday, normal). Similar symptoms previously: Once (One prior occurance of similar but less significant pain a few years ago that lasted for one week with spontaneous resolution and did not occur on her menses). Recent medical care: The patient was seen recently in a clinic. REVIEW OF SYSTEMS Last normal menstrual period- 1 days ago and was 2 weeks late. 0. Sexual history - sexually active, engages in unprotected sex and heterosexual. No contraception. No constipation, difficulty with urination, pain with urination, urinary frequency or abnormal bleeding. No irregular periods, fever, headache or chest pain. All systems otherwise negative, except as recorded above. PAST HISTORY H/o UTI's H/o Nephrolithiasis as child. Additional Problems: no known problems. Surgeries: No prior abdominal surgery. Additional Surgeries: no known surgeries. SOCIAL HISTORY Alcohol use; consumes beer and wine by the glass occasionally. Is a local resident. The patient lives with spouse. FAMILY HISTORY Negative. ADDITIONAL NOTES The nursing notes have been reviewed. PHYSICAL EXAM Appearance: Alert. No acute distress. Vital Signs: Have been reviewed. Eyes: Eyes normal inspection. ENT: Nose normal. Neck: Normal inspection. CVS: Normal heart rate and rhythm. Heart sounds normal. Pulses normal. Respiratory: No respiratory distress. Breath sounds normal. Chest nontender. Abdomen: Soft. Mild tenderness in the left lower quadrant. No guarding. Bowel sounds normal. No organomegaly. No mass. No rebound tenderness or guarding. Back: Normal inspection. : Normal external exam. No vaginal bleeding or discharge. Mild right adnexal tenderness; moderate uterine tenderness; moderate left adnexal tenderness; moderate cervical motion tenderness. Skin: Normal skin color. Extremities: Extremities exhibit normal ROM. Neuro: Oriented X 3. LABS, X-RAYS, AND EKG Abdominal CT: EXAM DESCRIPTION: CT ABDOMEN PELVIS W CONTRAST Clinical: [id number] Comparison: No comparison Procedure: Multislice CT imaging was performed with intravenous contrast. Contrast: 100 ml of Optiray-350 was administered. Findings: Lung bases are clear. The liver, pancreas, spleen, gallbladder, kidneys and adrenal glands are unremarkable. IVC and aorta normal. No free air or free fluid. No abnormally dilated or thickened bowel loops. Normal appendix. There is a rounded area of fatty inflammation adjacent to the descending colon with a central area of fat. These findings are consistent with torsion of the epiploic appendage. No adenopathy. Incidental simple appearing 2.3 cm left ovarian cyst. Uterus unremarkable. Urinary bladder unremarkable. Bone windows demonstrate no acute abnormality. Impression: Torsion of a small epiploic appendage involving the descending colon in the left lower quadrant. No other acute abnormalities detected. Incidental left ovarian cyst. FC= DICTATED BY: Domingo Ingram M.D. on 12/09/2014 17:48:35 SIGNED BY: Domingo Ingram M.D. on 12/09/2014 5:52:01 PM cc: TR: DT: Verified in ImageCast: 12/09/2014 at 1752. Laboratory Tests: Laboratory tests have been ordered, with results reviewed and considered in the medical decision making process. [id number]: ( MsgRcvd 12/09/2014 17:11) Final results Test Result Flag Units (Reference) COLLECTION METHOD MIDSTREAM COLOR YELLOW CLARITY NON-TURBID SPECIFIC GRAVITY 1.015 units (1.003-1.035) LEUKOCYTE ESTERASE NEG (Negative) NITRITE NEG (Negative) UROBILINOGEN NORMAL EU/dL (Normal) PROTEIN NEG (Negative) pH 8.5 H units (5-8) BLOOD 1+ H (Negative) KETONE NEG (Negative) BILIRUBIN NEG (Negative) GLUCOSE NEG g/dL (Negative) EP CELLS RARE /lpf WBC 1-3 #/hpf (0-3) RBC 0-1 #/hpf (0-3) BACTERIA FEW H (None) AMORPHOUS PRESENT H (Absent) [id number]: ( MsgRcvd 12/09/2014 17:02) Final results Test Result Flag Units (Reference) HCG,URINE,QUALITATIVE NEGATIVE [id number]: ( [facility]24[facility] Final results Test Result Flag Units (Reference) WHITE BLOOD CELLS 11.6 H K/mm3 (4.0-11.0) RED BLOOD CELLS 4.74 M/mm3 (3.75-5.07) HEMOGLOBIN 13.5 g/dL (11.5-15.0) HEMATOCRIT 38.2 % (34.8-45.0) MCV 80.6 u3 (80.0-100.0) MCH 28.5 pg (25.9-34.2) MCHC 35.3 % (31.5-36.5) RDW 12.8 % (11.5-14.2) PLATELETS 276 K/mm3 (150-400) MPV 9.8 u3 (8.5-12.4) % NEUTROPHILS 70.9 % LYMPHOCYTES 21.5 % MONOCYTES 6.1 % EOSINOPHILS 1.1 % BASOPHILS 0.3 % IMM GRAN 0.1 % (0-0.5) Includes myelocytes, metamyelocytes and promyelocytes. # NEUTROPHILS 8.2 H K/mm3 (1.5-8.0) # LYMPHOCYTES 2.5 K/mm3 (1.0-3.5) # MONOCYTES 0.7 K/mm3 (0.2-1.0) # EOSINOPHILS 0.1 K/mm3 (0-0.5) # BASOPHILS 0.0 K/mm3 (0-0.2) METHOD AUTO [id number]: ( MsgRcvd 12/09/2014 16:40) Final results Test Result Flag Units (Reference) SODIUM 139 mmol/L (136-145) POTASSIUM 3.6 mmol/L (3.5-5.1) CHLORIDE 110 mmol/L (100-110) TOTAL CO2 22 mmol/L (22-31) GLUCOSE 129 H mg/dL (70-99) UREA NITROGEN (BUN) 10 mg/dL (6-20) CREATININE 0.6 mg/dL (0.5-1.1) GFR (MDRD) Non-Black >80 /1.73m2 (hjoz=356 mL/m GFR (MDRD) Black >80 /1.73m2 (mL/min) CALCIUM 9.0 mg/dL (8.4-10.2) AST 21 U/L (15-41) ALT 12 U/L (0-50) PROTEIN,TOTAL 6.9 g/dL (6.0-7.8) ALBUMIN 4.0 g/dL (3.5-5.0) GLOBULIN 2.9 g/dL (2.2-3.5) A/G RATIO 1.4 (1.1-1.9) ALKALINE PHOSPHATASE 82 U/L (38-126) BILIRUBIN,TOTAL 0.3 mg/dL (0.2-1.4) . PROGRESS AND PROCEDURES Course of Care: 17:23. Symptoms much better. DDx: Dysmenorrhea, UTI, ectopic, ovarian cyst, ovarian torsion, nephrolithiasis, PID, SBO, diverticulitis. UA does not show evidence of UTI/nephrolithiasis, HCG negative, unlikely ectopic. Pelvic exam not consistant with PID. CT scan does not show SBO, diverticulitis or free fluid to suggest torsion. There is a L sided ovarian cyst, however there is also descending colon torsion of the epiploic appendage which is most consistent with her presentation. Pain resolved with toradol and morphine. Return precautions given for worsening pain.. Disposition orders written. Disposition: Condition: good. Discharged. CLINICAL IMPRESSION Left ovarian cyst. No ruptured ovarian cyst, torsed ovarian cyst or associated polycystic ovary disease. (Epiploic Appendagitis). INSTRUCTIONS No dietary restrictions. (You have inflammation around your colon that is cause by decreased blood flow to the fat in your abdomen. This usualy resolves without intervention. Use anti-inflammatory medication such as ibuprofen for the next fews days with percocet additionally as needed. Return with worsening pain, vomiting, fever or other new concerning symptoms.). Prescription Medications: Oxycodone/APAP 5 mg/325 mg: take 1 tablet orally every 6 hours as needed for pain. Dispense fifteen (15). No refills. Zofran 4 mg: Take 1 orally every six hours as needed for nausea/vomiting. Dispense ten (10). No refills. Generic substitute OK. Follow-up: Follow up with your doctor in seven days. (Electronically signed by Gabriel Stacy MD 12/09/2014 20:35) Nurse Clinical [address], [place] [address] Registration Date/Time: 12/09/2014 15:47 Patient: Klarissa BARROS VisitID: [id number] 24y, F 1990 TRIAGE Triage time 1545. Acuity: LEVEL 3. Chief Complaint: ABDOMINAL PAIN. BP: 127/77. HR: 72. RR: 24. Temp: 36.8 oral. O2 saturation: 100 % room air. Alert. [place] Coma Scale: 15. No acute distress. Pain level now: 02/07. --16:34 Tiff Caldera RN. Medications Ibuprofen Oral. --1634 (12/09/14) Tiff Caldera RN. Allergies No Known Drug Allergy. --1634 (12/09/14) Tiff Caldera RN. History This started yesterday. The patient has had nausea (mild intermittent). The patient has had diarrhea. Treatment COMMUNICATIONS BILLING ANALYST: (seen in clinic. LD Ibuprofen 1100.). PAST MEDICAL HX: Negative. SURGERY HX: No history of previous surgery. SOCIAL HX: Nonsmoker. No alcohol use or drug use. No report of abuse. No infectious disease exposure. Arrived by private vehicle and accompanied by family. Historian: patient. Primary physician (sent from clinic). --16:34 Tiff Caldera RN. ADDITIONAL PROBLEMS: no known problems. ADDITIONAL SURGERIES: no known surgeries. Interventions ID band on patient. To treatment room. 5. --16:34 Tiff Caldera RN. PHYSICAL ASSESSMENT 15:55. To room via wheelchair. Alert. Oriented X 4. Appears in no acute distress. Appears in pain and anxious. (Pt states LMP as yesterday and reports increasing pain since that time. Pt denies relief with use of ibuprofen at home and also states mild diarrhea that she reports is often common at beginning of menses for her.). Respirations not labored. The patient has had intermittent episodes of nausea (abd bloated per pt.). Abdomen soft. Abdominal tenderness in the right lower quadrant, left lower quadrant and lower abdomen. Capillary refill less than 2 seconds. Mucous membranes are pink. Skin is warm and dry. --16:37 Tiff Caldera RN. NURSING PROGRESS NOTES 16:10. IV access: site #1, right antecubital space, 20g angiocath, with aseptic technique and good blood return; one attempt. Blood drawn. Labeled in the presence of the patient and sent to the lab. Lock flushed with 10 mL saline. --16:15 Tiff Caldera RN 15:55. Patient identifiers checked. Patient gowned. Head of bed elevated. Call light placed in reach. Side rails up x 2. Bed placed in lowest position. Brakes of bed on. --16:16 Tiff Caldera RN 16:22. ZOFRAN 4 mg slow IVP over 1 minute via IV site #1. IV patency established. IV site checked: no pain, redness, or swelling. IV flushed thoroughly pre- and post-medication administration. Confirmed right patient, medication, dose, time and route. IV FLUIDS STARTED: bag #1-1000 mL NS; at site #1 right antecubital space. Rate = wide open; bolus 1000mL over sixty minutes. --16:26 Tiff Caldera RN 16:23. MORPHINE 4mg diluted with 10 mL NS slow IVP over 2 minutes via IV site #1. IV patency established. IV site checked: no pain, redness, or swelling. IV flushed thoroughly pre- and post-medication administration. Sedative drug warning given to patient and patient's rn case manager hospice. Confirmed right patient, medication, dose, time and route. --16:26 Tiff Caldera RN 16:22. Patient reports current pain level as 6/10. --16:27 Tiff Caldera RN 16:38 12/09/2014. (Pt aware of need for urine specimen.). --16:38 Tiff Caldera RN 16:43 12/09/2014. Reassessment after fluids administered and medication administered (Pt ambulated to restroom at this time to provide specimen. Pt gait steady. Pt denies dizziness.). The patient is calm and has had no adverse reaction. --16:43 Tiff Caldera RN 17:01. (Pelvic exam completed by Dr Black. Specimen collected.). --17:12 Tiff Caldera RN 17:07. TORADOL 30 mg slow IVP over 1 minute via IV site #1. IV patency established. IV site checked: no pain, redness, or swelling. IV flushed thoroughly pre- and post-medication administration. Confirmed right patient, medication, dose, time and route. --17:12 Tiff Caldera RN 17:01. BP: 99/60. HR: 60. RR: 16. O2 saturation: 99 % room air. --17:29 Tiff Caldera RN 17:36 12/09/2014. IV FLUIDS STOPPED site #1 bag #1. Total amount infused = 1000 mL. IV converted to a saline lock. Patient transported to [place] by stretcher with tech. --17:36 Tiff Caldera RN 17:50. Patient returned from CT by stretcher with tech. --18:05 Tiff Caldera RN. DISPOSITION / DISCHARGE BP: 120/82 lying L arm. HR: 52. RR: 16. Temp: 36.9 oral. O2 saturation: 100 room air. Patient reports pain level on departure as 5/10. --18:37 DENNISE Gifford 18:39 12/09/2014. IV site discontinued, catheter intact. Condition at departure: improved. Patient reports pain level on departure as 5/10. No learning barriers present. Discharge instructions provided and reviewed. Reviewed medication side effects, precautions, dosing and course; prescription given to the patient (Percocet, Zofran). Reviewed referrals (PMD if not iproved). Verbalized understanding. Written instructions provided in Kos[place]. The patient was discharged by the physician. The patient was discharged home and accompanied by rn case manager hospice. The patient left the Emergency Department ambulatory and via private vehicle. Sewing Department Supervisor driving. Departure time: 18:39 Dec 09 2014. --18:39 Loree Masterson RN. Locked/Released at 12/09/2014 18:41 by Loree Masterson RN * Aldo Black MD - 12/09/2014 3:47 PM PDT ..... Patient: Klarissa BARROS OrderSheet [facility] VisitID: [id number] [facility], [place] [address] 24y, F [id number] ORDER SHEET Weight: Allergies: No Known Drug Allergy GENERAL ORDERS: XR Shoulder Left 2 V Complete Stat (15:55 12/09/2014 Dontae TORREZ) (Cancelled: Wrong Mxwuvdn22:01 Winston RN) CMP Stat (16:05 12/09/2014 Justinokarin written order Dontae TORREZ) (Ack 16:08 JORGEwiozzie NAC) (16:14 Louie RN) CBC w Auto Diff Stat (16:05 12/09/2014 Dennise written order Dontae TORREZ) (Ack 16:08 JORGEwiozzie NAC) (16:14 Louie RN) Urinalysis \T\ Micro, Cult if Ind Stat (16:05 12/09/2014 Dennise written order Dontae TORREZ) (Ack 16:08 JORGEwiozzie NAC) (17:13 Louie RN) HCG, Urine, Qualitative Stat (16:05 12/09/2014 Dennise written order Dontae TORREZ) (Ack 16:08 JORGEwiozzie NAC) (17:13 Louie RN) Chlamydia \T\ Gonorrhea Stat (16:59 12/09/2014 Dennise written order Dontae TORREZ) (Ack 17:13 Louie RN) (17:23 Louie RN) CT Abdomen Pelvis W Contrast (Oral CM: Yes) (concern for ovarian cyst/torsion) Stat (17:16 12/09/2014 Dennise written order Dontae TORREZ) (17:24 SSchwifritz) (Cancelled: Wrong Order17:24 Justinohwifritz) CT Abdomen Pelvis W Contrast (Oral CM: No) (concern for ovarian pathology) Stat (17:24 12/09/2014 Dennise written order Dontae TORREZ) (Ack 17:25 Louie RN) (18:05 Chavaon RN) MEDICATION ORDERS: Morphine IV 4 mg (HIGH ALERT MEDICATION, NOW) (16:05 12/09/2014 Dennise written order Dontae TORREZ) (Ack 16:14 Louie RN) (16:25 Chavaon RN) Ondansetron IV 4 mg (16:05 12/09/2014 Dennise written order Dontae TORREZ) (Ack 16:14 CSnancyon RN) (16:25 CSnancyon RN) Ketorolac IV 30 mg (17:00 12/09/2014 Dennise written order Dontae TORREZ) (17:07 CSsalina RN) IV FLUIDS: IV NS (Solution 0.9 %): 1000 mL/hr for 1h (16:05 12/09/2014 Justinokarin written order Dontae TORREZ) (Ack 16:14 CSwanson RN) (16:25 CSwabebetoon RN) ORDER SHEET NOTES: [Electronically signed by Loree Masterson RN (18:41 12/09/2014)] [Electronically signed by Gabriel Stacy MD (20:35 12/09/2014)] [Electronically locked/signed by Loree Masterson RN (18:41 12/09/2014)] documented in this encounter Plan of Treatment Not on file documented as of this encounter Visit Diagnoses Not on filedocumented in this encounter Additional Health Concerns Infection Onset Date Last Indicated Resolved Time RULE-OUT Novel Coronavirus (COVID-19) 06/26/2020 06/29/2020 06/30/2020 2:[address] documented as of this encounter Care Teams Treating Engineer Helper Relationship Specialty Start Date End Date Rolanda Coronel ARNP PCP - General Family Medicine 04/29/13 11/01/16 Salma Manuel PA PCP - General Physician Frame Fixer 11/02/16 documented as of this encounter
--- OUTSIDE RECORDS SUMMARY | 2025-03-21 15:15 | XMS_ITS | Encounter Summary ---
Author Organization [facility] Address [address] [address] Care Team Providers Care Foster Care Social Worker Name Role Phone Salma Manuel Primary Care Provider [phone] Encounter Details Date Type Department Care Team (Late st Contact Info) Description 12/09/2024 Order Binding Stitcher [facility] Scheduling Office [address] [place] [phone] Lizeth Fisher MD [address] [place] [address] [phone] Social History Tobacco Use Types Packs/Day Years [...] on filedocumented in this encounter Care Teams Foster Care Social Worker Relationship Specialty Start Date End Date Salma Manuel PA PCP - General Physician Regional Project Manager 11/02/16 documented as of this encounter
--- OUTSIDE RECORDS SUMMARY | 2025-03-21 15:15 | XMS_ITS | Encounter Summary ---
Author Organization [facility] Address [address] [place] [address] Care Team Providers Care Key Attendant Name Role Phone Salma Manuel Primary Care Provider [phone] Encounter Details Date Type Department Care Team (Latest Contact Info) Description 12/10/2024 Order Soap Slabber [facility] Office [address] [place] [phone] Lizeth Fisher MD [address] [place] [phone] Encounter for follow-up ultrasound of anatomy Social History Tobacco Use Types Packs/Day Years [...] as of this encounter Visit Diagnoses Diagnosis Encounter for follow-up ultrasound of anatomy documented in this encounter Care Teams Key Attendant Relationship Specialty Start Date End Date Salma Manuel PA PCP - General Physician Cuff Setter Lockstitch 11/02/16 documented as of this encounter
--- OUTSIDE RECORDS SUMMARY | 2025-03-21 15:15 | XMS_ITS | Encounter Summary ---
Author Organization [facility] Address [address] [place] [address] Care Team Providers Care Medicine Worker Name Role Phone Salma Manuel Primary Care Provider [phone] Encounter Details Date Type Department Care Team (Late st Contact Info) Description 11/02/2016 [place] [address] [place] [address] Lizeth Fisher MD [address] [place] [address] [phone] Social History Tobacco Use Types Packs/Day Years [...] documented as of this encounter Care Teams Medicine Worker Relationship Specialty Start Date End Date Salma Manuel PA PCP - General Physician Dermatology Physician 11/02/16 documented as of this encounter
--- OUTSIDE RECORDS SUMMARY | 2025-03-21 15:15 | XMS_ITS | Encounter Summary ---
Author Organization [facility] Address [address] [place] [address] Care Team Providers Care Greenhouse Florist Name Role Phone Salma Manuel Primary Care Provider [phone] Encounter Details Date Type Department Care Team (Latest Contact Info) Description 06/22/2023 Order Antique Furniture Repairer [facility] Office [address] [place] [id number] Lizeth Fisher MD [address] [place] [address] [phone] Second trimester Social History Tobacco Use Types Packs/Day [...] as of this encounter Visit Diagnoses Diagnosis Second trimester state, incidental documented in this encounter Care Teams Greenhouse Florist Relationship Specialty Start Date End Date Salma Manuel PA PCP - General Physician Investor Relations Coordinator 11/02/16 documented as of this encounter
--- OUTSIDE RECORDS SUMMARY | 2025-03-21 15:15 | XMS_ITS | Encounter Summary ---
Author Organization [facility] Address [address] [place] [address] Care Team Providers Care Professor Of Fine Art Name Role Phone Salma Manuel Primary Care Provider [phone] Encounter Details Date Type Department Care Team (Late st Contact Info) Description 03/13/2023 Orders Only [facility] [place], [place] [address] [place] [address] Gabriel Jackson with inconclusive viability, single or unspecified fetus Social History Tobacco Use Types Packs/Day Years [...] on file Legal Sex Female 11:16 AM [facility] Gender Identity Not on file Sexual Orientation Not on file documented as of this encounter Plan of Treatment Not on file documented as of this encounter Results * (ABNORMAL) Beta HCG, Quantitative (03/13/2023 10:04 AM [facility]) [facility], Quantitative 75,765.0( H) <=5.0 mIU/mL 03/13/2023 11:45 AM [facility] Comment: Non- pre-menopausal: <=5.0 mIU/mL. Non- sung-menopausal: < 8.0 mIU/mL Non- post-menopausal: < 14.0 mIU/mL Indeterminate: Up to 25.0 mIU/mL (repeat testing recommended in one week). Consistent with : >25 mIU/mL. Blood Venipuncture / Unknown 03/13/2023 10:04 AM PST 03/13/2023 10:04 AM PST Lizeth Fisher MD LAB BLOOD ORDERABLES Final R esult [employer] [address] [place] [address] [place] [address] documented in this encounter Visit Diagnoses Diagnosis with inconclusive viability, single or unspecified fetus documented in this encounter Care Teams Professor Of Fine Art Relationship Specialty Start Date End Date Salma Manuel PA PCP - General Physician Parking Meter Mechanic 11/02/16 documented as of this encounter
--- OUTSIDE RECORDS SUMMARY | 2025-03-21 15:15 | XMS_ITS | Encounter Summary ---
Author Organization [facility] Address [address] [place] [address] Care Team Providers Care Ortho Nurse Name Role Phone Rolanda Coronel Primary Care Prov ider Salma Manuel Primary Care Provider [phone] Encounter Details Date Type Department Care Team (Late st Contact Info) Description 12/09/2014 Scanned Document SCANNED ONLY Scanned, Document Social [...] documented as of this encounter Care Teams Ortho Nurse Relationship Specialty Start Date End Date Rolanda Coronel ARNP PCP - General Family Medicine 04/29/13 11/01/16 Salma Manuel PA PCP - General Physician Gemologist 11/02/16 documented as of this encounter
== END 2025-03-19 11:11 | disposition home or self-care (01) ==
LOC: OB 11:42
PROVIDERS: PCP Physician Assistant; Referring Provider Obstetrics & Gynecology; Visit Provider Obstetrics & Gynecology
DX: O24.913 Unspecified diabetes mellitus in pregnancy, third trimester (principal); Z3A.35 35 weeks gestation of pregnancy; Z79.4 Long term (current) use of insulin
CPT/HCPCS: 59025; G0378; G0379

== ENCOUNTER 2025-03-25 11:49 | Outpatient (CLI) | payer OTHER, SELFPAY ==
--- NOTE | 2025-03-25 12:20 | P.TNLD_ITS ---
Visit Information Visit Information Date of evaluation: 03/25/25 Primary OB Provider: Christianne Garcia On-call OB Provider: Pippa Miramontes Reason for Evaluation: Yes non-stress test Comments/Additional reasons for admission: A2GDM, AMA, CHTN with h/o PIH PFS Medical History (Updated 01/22/25 @ 11:59 by Christianne Garcia DO) Status post vacuum-assisted vaginal delivery (~10/05/23) Hypertension Acne Migraine with aura Normal esophagogastroduodenoscopy (EGD) History of loop electrosurgical excision procedure (LEEP) of cervix affecting p regnancy in third trimester (03/14/17) Encounter for induction of labor Spontaneous vaginal delivery Stenosis, cervix Preeclampsia Surgical History (Updated 11/15/23 @ 11:47 by Carlie Slaughter MD) [place] teeth extracted H/O LEEP Family History (Updated 03/08/23 @ 15:26 by Carly Post RN) Mother Hypertension Depression Adopted hemorrhage Father ADHD Grandmother Cancer Grandfather Heart disease Social History marital status: number of children: 2 household members: spouse and children lives independently: Yes caregiver/support person: Yes housing: house pets and animals: Yes (1 cat, 1 dog; managing litter box) education level: high school 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, [employer]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) current occupational exposures/hazards: No special kristal needs: No travel history: recent (domestic/local only) seatbelt use: always water heater temp set < 120 deg: Yes working smoke detector in home: Yes fire extinguisher in home: Yes carbon monox detector in home: Yes firearms in home: No do you feel safe at home: Yes Tobacco: How many years used: 10 (Off and on smoking/vaping for total of 8-10 years) second hand exposure: No alcohol intake: former (3-5 glasses wine/week when not ) substance use type: does not use during the past year weight has: other (baby 11 months old, 15 lb under end of at conception) well-balanced diet: about half the time daily servings fruits/ve-4 caffeine: Yes (aware of 200mg limit) Type(s) of exercise: other (active job) Review of Systems Review of Systems ROS: Yes All systems reviewed with the patient and are negative except as otherwise documented Exam Vital Signs (past 8 hours): 140/70 129/72 125/73 Evaluation Evaluation Baseline heart rate: 140 Variability: Moderate (6-25) monitor accelerations: Present Monitor Decelerations: Absent Category of Tracing: Reactive Status: Category l Diagnosis, Plan/Disposition Plan/Disposition Plan: continue testing as schedule routine precautions f/u JOHANN as scheduled OB Disposition: home
== END 2025-03-25 12:30 | disposition home or self-care (01) ==
LOC: LABOR 12:29 → OB 13:39
PROVIDERS: PCP Physician Assistant; Referring Provider Obstetrics & Gynecology; Visit Provider Obstetrics & Gynecology
DX: O24.419 Gestational diabetes mellitus in pregnancy, unspecified control (principal); O09.523 Supervision of elderly multigravida, third trimester; O10.913 Unspecified pre-existing hypertension complicating pregnancy, third trimester; Z3A.36 36 weeks gestation of pregnancy
CPT/HCPCS: 59025; G0378; G0379

== ENCOUNTER 2025-04-01 10:14 | Outpatient (CLI) | payer OTHER, SELFPAY | END 2025-04-01 10:54 | disposition home or self-care (01) | LOC: LABOR 10:48 → OB 14:15 | PROVIDERS: PCP Physician Assistant; Referring Provider Obstetrics & Gynecology; Visit Provider Obstetrics & Gynecology | DX: O09.523 Supervision of elderly multigravida, third trimester (principal); O24.913 Unspecified diabetes mellitus in pregnancy, third trimester; O13.3 Gestational [pregnancy-induced] hypertension without significant proteinuria, third trimester; Z79.4 Long term (current) use of insulin; Z3A.37 37 weeks gestation of pregnancy | CPT/HCPCS: 59025; G0378; G0379 ==

== ENCOUNTER 2025-04-06 23:25 | Inpatient (IN) | payer OTHER, SELFPAY ==
[2025-04-07] VITALS (7 sets, daily range): BP systolic 130–144; BP diastolic 81–86; PULSE 94–123; TEMP 37.1–38.1
[2025-04-07 00:24] LABS: Add Manual Diff / Slide Review NO; Hematocrit 39.2 % (36-46); Hemoglobin 13.5 g/dL (12.0-16.0); Lymphocytes Absolute Auto 1700 /uL (1100-4500); Mean Corpuscular HGB Conc 34.5 % (30-36); Mean Corpuscular Hemoglobin 27.7 PG (26-34); Mean Corpuscular Volume 80.3 fL (80-100); Platelet Count 250 X10^3/uL (150-400)
[2025-04-07] MEDS: LABETALOL 100 MG TABLET 200 MG PO ×3 (00:31→21:00)
[2025-04-07] MEDS: AMPICILLIN 2,000 MG in SODIUM CHLORIDE 0.9% 100 ML 200 MG IV (00:39)
[2025-04-07] MEDS: LACTATED RINGERS 1,000 ML 100 ML IV (00:40)
--- NOTE | 2025-04-07 01:35 | PM.AN.REGBLK ---
Regional Block Pre-procedure Procedure: Continuous Lumbar Epidural for L&D Attending OB provider: Shazia Snyder PMH/ROS narrative: with PMH preeclampsia, gestational hypertension, gestational diabetes, anxiety/depression, sees therapist regularly; ADHD, stops Adderall when /. Requesting CSE for labor pain. PSH/Anesthesia history narrative: Previous 2 labor epidurals (first was subtherapeutic, second patient reports no issues). EGD, LEEP, wisdom teeth without anestheic complication. Exam narrative: See pre-anesthesia eval. ASA Class: III Labs: Hct 39.2 % (36-46) 04/06/25 00:10 Plt Count 250 X10^3/uL (150-400) 04/06/25 00:10 Medications: Current Medications Generic Name Dose Route Start Last Admin Trade Name Freq PRN Reason Stop Dose Admin Calcium Carbonate 1,000 mg 04/06/25 23:47 Calcium Carbonate 500 Mg Tab PO Q2HR PRN Dyspepsia Carboprost Tromethamine 250 mcg 04/06/25 23:47 Carboprost 250 Mcg/Ml Ampul IM Q90M PRN Bleeding Lactated Ringer's 1,000 mls @ 100 mls/hr 04/06/25 23:45 04/07/25 00:40 Lactated Ringers IV 04/07/25 09:44 100 mls/hr CONT CHAN Administration Oxytocin/Lactated Ringer's 30 unit in 500 mls @ 200 mls/hr 04/06/25 23:47 Oxytocin Premix IV CONT PRN Bleeding Protocol Tranexamic Acid 1,000 mg/ 100 mls @ 600 mls/hr 04/06/25 23:47 Sodium Chloride IV NOW PRN Bleeding Lactated Ringer's 1,000 mls @ 999 mls/hr 04/07/25 01:32 Lactated Ringers IV 04/07/25 02:32 BOLUS ONE FENT 2MCG/ML BUPIV 0.125% EPI 200 mcg in 100 mls @ 10 mls/hr 04/07/25 01:25 Fentanyl/Bupiv/Ns 2mcg/Ml - 0.125% EPIDURAL CONT CHAN Protocol Labetalol HCl 200 mg 04/07/25 00:15 04/07/25 00:31 Labetalol 100 Mg Tablet PO 200 mg BID CHAN Administration Lidocaine HCl 20 ml 04/06/25 23:47 Lidocaine 1% 20 Ml INJ INTRA-OP PRN Post Delivery Methylergonovine Maleate 0.2 mg 04/06/25 23:47 Methylergonovine 0.2 Mg Tablet PO Q6HR PRN Heavy Bleeding Methylergonovine Maleate 0.2 mg 04/06/25 23:47 Methylergonovine 0.2 Mg/Ml Vial IM NOW PRN Bleeding Mineral Oil 30 ml 04/06/25 23:47 Mineral Oil 30 Ml Udc TOP PRN PRN Version Misoprostol 800 mcg 04/06/25 23:47 Misoprostol 200 Mcg Tablet MA NOW PRN Bleeding Misoprostol 400 mcg 04/06/25 23:47 Misoprostol 200 Mcg Tablet SL NOW PRN Bleeding Naloxone HCl 0.2 mg 04/06/25 23:47 Naloxone 0.4 Mg/Ml Vial IV Q2MIN PRN Opiate Reversal Ondansetron HCl 4 mg 04/06/25 23:47 Ondansetron 4 Mg/2 Ml Inj IV Q4HR PRN Nausea And Vomiting Oxytocin 10 unit 04/06/25 23:47 Oxytocin 10 Unit/Ml Vial IM NOW PRN Bleeding Allergies: Allergies Allergy/AdvReac Type Severity Reaction Status Date / Time No Known Drug Allergies (NO Allergy Unknown Unverified 03/19/25 11:23 KNOWN DRUG ALLERGIES) --: Epidural placement was technically difficult. Initial attempt was at L4/5, could only ever feel bone with Hustead. Repeat attempt at L3/4, patient reported parasthesias on right three times before hustead was redirected to approx 20 degrees to the left, at which point I was able to feel interspinous pops and definitive ligamentum flavum pop, with clear ANDRAE in syringe. Spinal needle inserted, felt pop, patient reported parasthesia, no return of CSF, instilled 1mL 0.25% bupi. Patient initially reported subsiding intensity of contraction pain, however after about 15 minutes she became tearful and overwhelmed by her pain. Aggressively bolused epidural. She was hemodynamically stable throughout. Informed that I have no doubt that epidural catheter is in her epidural space, based on her subtherapeutic response to liberal doses of local, and previous history of a sub-therapeutic epidural, I suspect her back curvature is a barrier to optimal epidural anesthesia. Her anxiety improved with 0.5mg IV ativan and she tolerated her labor well. In continuous attendance throughout anesthesia time. Procedure Insertion date: 04/07/25 Insertion time: 01:13 Prep/Local: 1% lidocaine (CHG to back for skin prep, total of 5mL 2% lido, and 10mL lido 1% for skin prep) Interspace: L3/4 Patient position: sitting Needle: 18 gauge Hustead (+ spinal needle through hustead for CSE w/ 1.0mL 0.25% MPF bupi - no CSF backflow seen, but felt ligament pop and patient felt parasthesia with spinal needle) Loss of resistance with: saline ANDRAE at (cm): 8 Catheter placed at SKIN (cm): 12 Catheter in SPACE (cm): 4 Insertion: No CSF, No Blood, Yes Paresthesia with insertion, No Paresthesia with injection and No Test dose reaction Initial Medications TEST DOSE time: 01:15 TEST DOSE: 1.5% lidocaine with epinephrine 1:200k (mL): 3 BOLUS DOSE time: 01:17 BOLUS DOSE (mL): 5 BOLUS DOSE med: 0.25% bupivacaine Infusion INFUSION: 0.125% bupivacaine and with fentanyl 2 mcg/mL Initial rate (mL/hr): 10 Subsequent interventions: 0120 10mL infusate 0130 5mL 2% MPF bupi + 100mcg fentanyl 0140 10mL 2chloroprocaine 0150 10mL 2chlorocaine 0156 pulled catheter back from 12 to 10cm at skin 0205 2mL 2% lido SROM somewhere around this time frame 0210 5mL 2% lido and 0.5mg ativan IV for anxiety, tearfulness related to continued sensation of pressure during contractions 0247 Baby girl born via vaginal delivery Post-procedure Anesthesia date START: 04/07/25 Anesthesia time START: 00:50 Anesthesia date END: 04/07/25 Anesthesia time END: 13:02 Post-procedure Anesthesia Assessment: Yes CV function: HR/BP stable, Yes Resp function: RR/sat/airway adequate, Yes Post-op hydration adequate, Yes Pain control adequate, Yes Nausea & vomiting absent, Yes Temperature > 36 C and Yes Mental status appropriate
--- NOTE | 2025-04-07 03:17 | RT ---
Attended regular delivery. Upon receiving baby RT started CPAP @ 21%. Minimal resp effort initially, after approx 1 minute 5-10 PPV breaths given and infant responded well. Spo2 started to climb and intermitant cries. Suctioned orally x2 w/ clear secretions. Fio2 turned to 30% for approx 1 minute and back to 21%, Spo2 90-95%. Good color and breath sounds. remained on room air.
--- NOTE | 2025-04-07 03:24 | PM.OBHP.IH.1 ---
OB HPI Date/Time Date of admission: 04/06/25 History of Present Condition Chief complaint: labor NELLIE Calculator Estimated Delivery Date Method Current WG Current Estimate 04/22/25 LMP (Uncertain) 37w 6d Other Estimates 04/20/25 Ultrasound #1 38w 1d Narrative: 35-year-old at [place] 37+6 weeks presenting for labor. Onset of irregular ctx 12/7 AM, became more painful throughout the day and regular around 2200. Originally presented for decreased movement, found to have made cervical change with regular painful contractions. course notable for AMA, GDMA2 on insulin, hx pre-eclampsia/gHTN in previous on ASA + labetalol. care: good care Dating criteria OB: LMP confirmed by 1st trimester US Ultrasounds: normal 1st trimester US and normal mid trimester US Obstetrical complications: gestational diabetes Preadmission Labs Last OB Lab Results: Blood Type B Positive 04/06/25, 00:10 Antibody Screen Negative 04/06/25, 00:10 Hct, (36-46) 39.2 % 04/06/25, 00:10 Hgb, (12.0-16.0) 13.5 g/dL 04/06/25, 00:10 Hep Bs Antigen, (NEGATIVE) Negative s/c 09/24/24, 14:39 Hepatitis C Antibody, (NEGATIVE) Negative s/c 09/24/24, 14:39 Rubella Antibody, (>15) 38.8 IU/mL 09/24/24, 14:39 VZV IgG Antibody, (Non Reactive) Reactive 09/24/24, 14:39 Glucose 1 Hr 50 gm, (76-139) 128 mg/dL 07/19/23, 12:19 Fasting Glucose, (70-105) 68 mG/dL L 02/21/17, 10:10 Glucose 3 Hour, (70-145) 70 mg/dL 02/21/17, 13:17 Group B Strep (PCR) Pos for grp b strep H 09/28/23, 09:58 -: Chlamydia screen: negative and Gonorrhea screen: negative Genetic Screens: Quad screen: Normal and Cell-free DNA: Normal Prior (ies) Past Pregnancies Del. Date GA/Weeks Labor Lgth Wt Sex Route Outcome Anesthesia Place Delv Breastfeed Preg Comp Name 05/10/17 38 6 lb Female vaginal live - epidural IH 5-6 months [place] 10/05/23 37 6 7 lb 3 oz Female vaginal vacuum live - full term epidural IH ~8 months [place] Delivery Date: 05/10/17 Last Updated by: Carly Post RN Slow labor r/t cervical stenosis from LEEP Evaluation Evaluation Baseline heart rate: 150 Variability: Moderate (6-25) monitor accelerations: Present Monitor Decelerations: Prolonged and Variable Contraction Frequency (minutes): 2 Dilation (cm): 10 Effacement (%): 100 station: +2 [facility] Medical History (Updated 01/22/25 @ 11:59 by Christianne Garcia DO) Status post vacuum-assisted vaginal delivery (~10/05/23) Hypertension Acne Migraine with aura Normal esophagogastroduodenoscopy (EGD) History of loop electrosurgical excision procedure (LEEP) of cervix affecting in third trimester (03/14/17) Encounter for induction of labor Spontaneous vaginal delivery Stenosis, cervix Preeclampsia Surgical History (Updated 11/15/23 @ 11:47 by Carlie Slaughter MD) [place] teeth extracted H/O LEEP Family History (Updated 03/08/23 @ 15:26 by Carly Post RN) Mother Hypertension Depression Adopted hemorrhage Father ADHD Grandmother Cancer Grandfather Heart disease Social History marital status: number of children: 2 household members: spouse and children lives independently: Yes caregiver/support person: Yes housing: house pets and animals: Yes (1 cat, 1 dog; managing litter box) education level: high school 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, [employer]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) current occupational exposures/hazards: No special kristal needs: No travel history: recent (domestic/local only) seatbelt use: always water heater temp set < 120 deg: Yes working smoke detector in home: Yes fire extinguisher in home: Yes carbon monox detector in home: Yes firearms in home: No do you feel safe at home: Yes Tobacco: How many years used: 10 (Off and on smoking/vaping for total of 8-10 years) second hand exposure: No alcohol intake: former (3-5 glasses wine/week when not ) substance use type: does not use during the past year weight has: other (baby 11 months old, 15 lb under end of at conception) well-balanced diet: about half the time daily servings fruits/ve-4 caffeine: Yes (aware of 200mg limit) Type(s) of exercise: other (active job) Meds Home Medications and Allergies Home Medications ?Medication ?Instructions ?Recorded ?Confirmed ?Type vitamin-ferrous sulfate tab PO 03/08/23 03/19/25 History 27 mg iron-folic acid 0.8 mg tablet ondansetron 4 mg disintegrating 4 mg PO Q6H PRN nausea and 09/09/24 03/19/25 Rx tablet vomiting #20 tabs docosahexaenoic acid 300 mg mg PO 09/10/24 03/19/25 History capsule (Algal-900 DHA) famotidine 10 mg tablet (Pepcid AC) 10 mg PO BID 09/10/24 03/19/25 History melatonin 1 mg tablet 1 mg PO BEDTIME PRN 09/10/24 03/19/25 History pyridoxine (vitamin B6) 100 mg 100 mg PO BID PRN 09/10/24 03/19/25 History tablet fluconazole 150 mg tablet 150 mg PO ONCE #1 tab 09/16/24 03/19/25 Rx labetalol 100 mg tablet 100 mg PO BID #60 tabs 01/08/25 03/19/25 Rx blood sugar diagnostic (Blood #100 ea 01/09/25 03/19/25 Rx Glucose Test strips) blood-glucose meter (Blood Glucose #1 ea 01/09/25 03/19/25 Rx Monitoring kit) lancets #100 ea 01/09/25 03/19/25 Rx blood-glucose sensor (Dexcom G7 #3 ea 01/17/25 03/19/25 Rx Sensor device) RSVPreF3 antigen-AS01E 0.5 ml IM ONCE #1 kit 02/24/25 03/19/25 Rx adjuvant(PF) 120 mcg/0.5 mL IM suspension, kit pen needle, diabetic 32 gauge x #100 ea 03/31/25 Rx 1/6 insulin NPH isoph U-100 human 100 See Rx Instructions SUBCUT 04/02/25 Rx unit/mL (3 mL) subcutaneous pen .COMPLEX #15 mL (Novolin N FlexPen) Allergies Allergy/AdvReac Type Severity Reaction Status Date / Time No Known Drug Allergies (NO Allergy Unknown Unverified 03/19/25 11:23 KNOWN DRUG ALLERGIES) OB Exam Narrative Exam Narrative: General: Well-nourished, no distress HEENT: NC/AT, EOMI, moist mucous membranes CV: RRR, normal S1 S2, no m/g/r Resp: CTAB Abd: Gravid, soft, NTND, +BS Ext: Full ROM, no edema Skin: No rash or lesions Neuro: A&O x3, normal tone, no focal deficits Objective Labs 04/06/25 00:10 Labs: Laboratory Results - last 24 hr 04/06/25 04/07/25 00:10 01:26 WBC 16.9 H RBC 4.87 Hgb 13.5 Hct 39.2 MCV 80.3 MCH 27.7 MCHC 34.5 RDW 14.5 Plt Count 250 Neut % (Auto) 82.6 H Lymph % (Auto) 10.0 L Meigs % (Auto) 6.5 Eos % (Auto) 0.3 L Baso % (Auto) 0.6 Neut # (Auto) 77127 H Lymph # (Auto) 1700 [place] # (Auto) 1100 H Eos # (Auto) 0 Baso # (Auto) 100 POC Whole Bld Glucose 96 Blood Type B Positive Antibody Screen Negative Assessment and Plan Assessment and Plan Assessment and Plan narrative: 35-year-old at [place] 37+6 weeks presenting for active labor. -admit to L&D -GBS positive, ppx indicated -pain control prn if desired by patient -PPH risk low -VTE risk low, SCDs with epidural -anticipate vaginal delivery Time-Based Coding :: 20 minutes spent with patient and on the chart (including review of chart, obtaining history, exam, reviewing outside data, placing orders, documenting exam and treatment plan, and counseling patient) on 04/07/2025.
--- NOTE | 2025-04-07 03:38 | PM.OBPRVD ---
Events: Gestational Diabetes Labor & Delivery Delivery date: 04/07/25 Delivery Time: 02:47 Intrapartal Events: Bleeding, Acceleration and Deceleration Delivery monitor: external FHT and external uterine Route of delivery: L&D Laceration Description: Perineal - 2nd Degree Delivery repair: chromic (3-0) Estimated blood loss (mL): 700 Anesthesia Type: Epidural Narrative: Patient fully dilated at 0205 and began pushing at 0239. Spontaneous vaginal delivery of a viable female infant in the OA position occurred at 0247. The was suctioned and stimulated at the perineum, and gave appropriate cry with movement of all extremities. Delayed cord clamping was observed for 60 seconds. The cord was clamped and cut, and the handed to mother for skin to skin. was later transferred to warmer for additional stimulation and brief PPV before making spontaneous cry and returning to mother. Cord blood and segment were obtained. The placenta was delivered without difficulty using gentle cord traction and found to be intact with a 3-vessel cord. After fundal massage the uterus was firm and bleeding stopped. The vagina and cervix were examined for lacerations. A second degree perineal laceration was noted and repaired with 3-0 chromic suture in the usual fashion. Patient stable with rooming in, bonding skin to skin and attempting to breastfeed. [place] Baby 1: gender: Female Presentation: vertex Position: Right Occiput Anterior Placenta delivery description: Spontaneous Cord Vessel Description: 3 Vessels score (1 min): 4 score (5 min): 6 score (10 min): 8 Plan for aftercare: Routine care
[2025-04-07] MEDS: ACETAMINOPHEN 325 MG TABLET 650 MG PO ×3 (04:17→17:47)
[2025-04-07] MEDS: IBUPROFEN 600 MG TABLET PO ×3 (05:09→17:48)
[2025-04-07] MEDS: DERMOPLAST SPRAY 20% 60 ML 1 SPRAY TOP (06:50)
[2025-04-07] MEDS: DOCUSATE 100 MG CAPSULE PO (09:02)
[2025-04-07] MEDS: LANOLIN OINT 7 GM 1 APPLIC TOP (13:18)
--- NOTE | 2025-04-07 19:16 | DI.RAD.S_ITS ---
PROCEDURE: XR CHEST 2V INDICATIONS: R/O PE TECHNIQUE: 2 views of the chest were acquired. COMPARISON: None. FINDINGS: Surgical changes and devices: None. Lungs and pleura: Lungs are clear. No pleural effusions or pneumothorax. Mediastinum: Mediastinal contours are normal. Heart size is normal. Bones and chest wall: No suspicious bony abnormalities. Soft tissues appear unremarkable. IMPRESSION: No acute cardiopulmonary abnormality is seen. Dictated by: Domingo Key M.D. on 04/07/2025 at 19:55 Approved by: Domingo Key M.D. on 04/07/2025 at 19:55
--- NOTE | 2025-04-07 20:48 | P.PNOB_ITS ---
Subjective - OB Subjective Patient comments: pain well controlled and tolerating diet [place] baby status: doing well and nursing well [place] feeding status: exclusively breast feeding Narrative: Patient is a 35yo G3 now P3003 s/p on 04/07/25 at 0200. Doing well this am. sleeping during the day and baby healthy in the room. Patient noted to have a fever- Temp- 100.5 F at around 1900 today. P- 130bpm, O2 sat- 95% denies any symptoms of URI, denies cough, congestion, sore throat. breast feeding but denies engorgement denies dysuria/hematuria/frequency/flank pain. denies chest pain/SOB. Betsy does report feeling run down and fatigued today. 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 reports minimal bleeding. Date Patient Seen: 04/07/25 Time Patient Seen: 20:48 Exam Vital Signs (past 8 hours): - 04/07/25 18:30 04/07/25 18:30 Temperature 100.5 F H 100.5 F H Narrative Exam Narrative: General- AAO x3, NAD cardio- tachycardic rate, normal rhthym, no murmurs/gallops lungs- CTAB fundus- firm at the umbilicus- nontender LE- trace edema Objective Labs 04/06/25 00:10 Labs: Laboratory Results - last 24 hr 04/06/25 04/07/25 04/07/25 00:10 01:26 11:44 WBC 16.9 H RBC 4.87 Hgb 13.5 Hct 39.2 MCV 80.3 MCH 27.7 MCHC 34.5 RDW 14.5 Plt Count 250 Neut % (Auto) 82.6 H Lymph % (Auto) 10.0 L [place] % (Auto) 6.5 Eos % (Auto) 0.3 L Baso % (Auto) 0.6 Neut # (Auto) 16729 H Lymph # (Auto) 1700 [place] # (Auto) 1100 H Eos # (Auto) 0 Baso # (Auto) 100 POC Whole Bld Glucose 96 180 H Blood Type B Positive Antibody Screen Negative Assessment & Plan Plan day: 0 plan OB: routine care Comments: Patient is a 35yo G3 now p3003 s/p 1. PPD 1 - baby healthy in room - minimal lochia - 2. fever- overall patient appears well - Temp- 100.8 at 1900 on 04/07 - UA sent- pending - CXR- negative - denies s/s of PE, URI, UTI/pyelo - no risk factors of endometritis or evidence on exam, breast soft- no evidence of engorgement. - no clear etiology of fever at this time-- will continue to monitor and patient will inform her RN if any new symptoms notable, will consider respiratory panel if develops symptoms of URI 3. GDMA2 - stop insulin - will monitor glucose while inpatient - will need 2hr GTT at 6wk visit Time-Based Coding :: [TOTAL MINUTES] spent with patient and on the chart (including review of chart, obtaining history, exam, reviewing outside data, placing orders, documenting exam and treatment plan, and counseling patient) on [DATE].
[2025-04-07 21:18] LABS: Culture Indicated Urine Cult Not Indicated
[2025-04-08] MEDS: ACETAMINOPHEN 325 MG TABLET 650 MG PO ×3 (01:30→15:07)
[2025-04-08] MEDS: IBUPROFEN 600 MG TABLET PO ×3 (01:30→15:07)
[2025-04-08] MEDS: DOCUSATE 100 MG CAPSULE PO (09:29)
[2025-04-08 09:31] VITALS: BP 121/71; PULSE 108
[2025-04-08] MEDS: LABETALOL 100 MG TABLET 200 MG PO (09:31)
--- NOTE | 2025-04-08 13:21 | PM.OBDS.1 ---
Discharge Providers Provider Date of admission: 04/06/25 23:25 Discharge Date: 04/08/25 Primary care physician: Salma Manuel PA-C Consults: 04/06/25 23:48 Consult to Anesthesiology Urgent Comment: Consulting Provider: Anesthesiologist Reason for consultation: Epidural 04/07/25 03:52 Consult to Double End Production Grinder Routine Comment: Discharge provider: Christianne Garcia DO Summary Hospital Course Date Patient Seen: 04/08/25 Time Patient Seen: 13:22 Diagnoses: Hospital Course: Betsy is a 35yo G3 now P3003 s/p presented to L&D in active labor on 04/06 she had a precipitous labor and progressed to an uncomplicated . She has an course complicated by a fever- temp- 100.5 on PPD0. She had a full evaluation with UA neg, CXR neg and no evidence of Pulmonary embolus. She then improved and has been afebrile now over 12 hours with improvement of her previous fatigue and muscle ache symptoms. Currently she is feeling very well and desires to go home today with baby. [place] if she has any fevers >100.4. 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 glucose has been elevated Plan for a 2hr GTT at time of her 6wk visit to rule out diabetes outside of . will need annual screening due to increased risk of future DM. Patient started on labetalol 200mg BID during her due to history of Preeclampsia but has no history of chronic hypertension. BPs have been normotensive in the hospital .will discontinue labetalol now and plan to recheck BP at visit Peripartum Data Delivery Method: Natural Vaginal Laceration Description: None Procedures: epidural complications: none Status at Discharge Cognitive/behavioral status at discharge: oriented Functional status at discharge: independent ambulation Overall status at discharge: patient is progressing back to baseline Time Spent with Patient Time attestation: Total time spent providing and/or coordinating discharge services: Time spent: Less than 30 minutes Objective Labs 04/06/25 00:10 Labs: Laboratory Results - last 24 hr 04/07/25 04/07/25 04/08/25 15:54 19:44 01:34 POC Whole Bld Glucose 191 H 137 H Urine RBC 10-30/hpf H Urine WBC 0-1/hpf Ur Squamous Epith Cells None seen Urine Bacteria None seen Ur Culture Indicated? Cult not indicated Vol Urine Centrifuged 10ml (spun) Exam Vital Signs (past 8 hours): - 04/08/25 09:31 Pulse Rate 108 H Blood Pressure 121/71 Narrative Exam Narrative: General- AAO x3, NAD cardio- RRR lungs- CTAB fundus- firm, below the umbilicus, nontender lochia minimal Discharge Plan Discharge Plan Patient Disposition: Home Provider Discharge Comment: pelvic rest x 6 weeks Discharge orders & Medications Prescriptions: Continued vit-ferrous sulfat-FA 27 mg iron- 0.8 mg tablet PO famotidine [Pepcid AC] 10 mg tablet 10 mg PO BID Discontinued ondansetron 4 mg tablet,disintegrating 4 mg PO Q6H PRN (Reason: nausea and vomiting) Qty: 20 2RF fluconazole 150 mg tablet 150 mg PO ONCE Qty: 1 0RF labetalol 100 mg tablet 100 mg PO BID Qty: 60 4RF (DME) Blood Glucose Test Strip See Rx Instructions .ROUTE .MEDSUPPLY Qty: 100 3RF Rx Instructions: Please check am fasting BS, and 2 hours after breakfast/lunch/dinner (DME) lancets Misc See Rx Instructions .ROUTE .MEDSUPPLY Qty: 100 3RF Rx Instructions: Check bs am fasting and 2 hours after each meal (DME) blood-glucose meter [Blood Glucose Monitoring] Kit See Rx Instructions .ROUTE .MEDSUPPLY Qty: 1 0RF Rx Instructions: check am fasting blood sugar, and 2 hours after breakfast, lunch and dinner. (DME) Dexcom G7 Sensor Device See Rx Instructions .ROUTE .MEDSUPPLY Qty: 3 6RF Rx Instructions: use to check blood sugars and change out every 10 days (DME) pen needle, diabetic 32 gauge x 1/6 needle See Rx Instructions .Route Qty: 100 2RF Rx Instructions: to be used as directed, at least twice daily Novolin N FlexPen 100 unit/mL (3 mL) insulin pen See Rx Instructions SUBCUT .COMPLEX Qty: 15 3RF Rx Instructions: 15U QAM, 25U QHS subcutaneously; Algal-900 DHA 300 mg capsule PO melatonin 1 mg tablet 1 mg PO BEDTIME PRN pyridoxine (vitamin B6) 100 mg tablet 100 mg PO BID PRN RSVPreF3 antigen-AS01E (PF) 120 mcg/0.5 mL suspension for reconstitution 0.5 ml IM ONCE Qty: 1 0RF Follow up/Referrals: Christianne Garcia DO [Physician, Gynecology] Diet/Activity/Treatments Diet: Regular Skin/Wound/Dressing Care Report to your healthcare provider any signs of infection, such as:: chills, fever Visit Report/Discharge Packet Stand Alone Forms: Patient Portal/API, Stroke Signs & Symptoms Discharge Data Primary Care Provider: Salma Manuel
[2025-04-08 13:53] VITALS: BP 97/65; PULSE 89; RESP 16; TEMP 36.8
== END 2025-04-08 15:30 | disposition home or self-care (01) | DRG 806 ==
PROVIDERS: Obstetrics & Gynecology; Admitting Provider Family Medicine; PCP Physician Assistant; Referring Provider Family Medicine; Visit Provider Family Medicine
DX: O36.8130 Decreased fetal movements, third trimester, not applicable or unspecified (principal); O86.4 Pyrexia of unknown origin following delivery; Z37.0 Single live birth; O62.3 Precipitate labor; Z3A.37 37 weeks gestation of pregnancy; O99.824 Streptococcus B carrier state complicating childbirth; O24.424 Gestational diabetes mellitus in childbirth, insulin controlled; O76 Abnormality in fetal heart rate and rhythm complicating labor and delivery; O70.1 Second degree perineal laceration during delivery
CPT/HCPCS: 59050; 71046; 81015; 82962; 85025; 86850; 86900; 86901; G0379; J0290; J3010; J7050; J7120